=== PATIENT | female | born 1990 | race American Indian/Alaskan Native ===

== ENCOUNTER 2017-10-02 15:25 | Observation (INO) | payer OTHER ==
[2017-10-02 15:28] VITALS: BMI 23.8
--- NOTE | 2017-10-02 15:32 | ED PDOC ---
Arrival/HPI <Duran Guzman - Last Filed: 10/02/17 20:39> - General Historian: Patient <Siomn Stevenson - Last Filed: 10/04/17 21:48> - General Time Seen by Provider: 10/02/17 15:31 - History of Present Illness Narrative History of Present Illness (Text): 10/02/17 15:32 27 y/o female, pmh including htn/gerd/dm/gastroparasis, nkda, c/o abdominal pain with nausea and vomiting x 1 day. Pt. stated that she has generalized upper abdominal pain, associated with nausea and vomiting, no fever or chills, stated that she feels fatigue, no night sweat, no dizziness, no rash, no night sweat, no palpitation, no numbness or tingling, no other medical or psychological complaints. (Simon Stevenson) Past Medical History - Provider Review Nursing Documentation Reviewed: Yes - Infectious Disease Hx of Infectious Diseases: None - Tetanus Immunization Tetanus Immunization: Unknown - Cardiac Hx Hypertension: Yes - Pulmonary Hx Respiratory Disorders: No - Neurological Hx Neurological Disorder: No - HEENT Hx HEENT Disorder: No - Renal Hx Renal Disorder: No - Endocrine/Metabolic Hx Diabetes Mellitus Type 1: Yes (dx 9 yrs old) - Hematological/Oncological Hx Sickle Cell Disease: Yes ("JUST FOUND OUT A MONTH AGO") - Integumentary Hx Dermatological Disorder: No - Musculoskeletal/Rheumatological Hx Osteoporosis: Yes (pt unsure of this hx) - Gastrointestinal Hx Gastritis: Yes - Genitourinary/Gynecological Hx Genitourinary Disorders: No - Psychiatric Hx Anxiety: Yes Hx Depression: Yes Hx Substance Use: No - Past Surgical History Past Surgical History: Non-Contributing - Anesthesia Hx Anesthesia: Yes Hx Anesthesia Reactions: No Hx Malignant Hyperthermia: No - Suicidal Assessment Feels Threatened In Home Enviroment: No <Simon Stevenson - Last Filed: 10/04/17 21:48> Family/Social History - Physician Review Nursing Documentation Reviewed: Yes Family/Social History: Unknown Family HX Smoking Status: Light Smoker < 10 Cigarettes Daily Hx Alcohol Use: No Hx Substance Use: No Substance used: weed Hx Substance Use Treatment: No <Simon Stevenson - Last Filed: 10/04/17 21:48> Allergies/Home Meds <Duran Guzman - Last Filed: 10/02/17 20:39> <Simon Stevenson Q - Last Filed: 10/04/17 21:48> Allergies/Adverse Reactions: Allergies No Known Allergies Allergy (Verified 10/02/17 16:20) Home Medications: Home Meds Medication Instructions Recorded Confirmed metFORMIN [glucOPHAGE] 500 mg PO BID 07/26/17 10/02/17 Lisinopril 1 tab PO DAILY 09/08/17 10/02/17 Protonix 40 mg PO DAILY 09/08/17 10/02/17 Ondansetron ODT [Zofran ODT] 4 mg PO PRN PRN 10/02/17 10/02/17 Review of Systems - Review of Systems Constitutional: Fatigue. absent: Fevers Eyes: absent: Vision Changes ENT: absent: Hearing Changes Respiratory: Cough. absent: SOB Cardiovascular: absent: Chest Pain Gastrointestinal: Nausea. absent: Diarrhea Musculoskeletal: Myalgias. absent: Arthralgias, Back Pain, Neck Pain Skin: absent: Rash, Pruritis Neurological: absent: Headache, Dizziness Psychiatric: absent: Anxiety, Depression <Simon Stevenson Q - Last Filed: 10/04/17 21:48> Physical Exam Temperature: Afebrile Blood Pressure: Normal Pulse: Regular Respiratory Rate: Normal Appearance: Positive for: Well-Appearing, Non-Toxic, Comfortable Pain Distress: None Mental Status: Positive for: Alert and Oriented X 3 - Systems Exam Head: Present: Atraumatic, Normocephalic Pupils: Present: PERRL Extroacular Muscles: Present: EOMI, Gaze Palsy, Entrapment, Other Conjunctiva: Present: Normal Mouth: Present: Moist Mucous Membranes Neck: Present: Normal Range of Motion Respiratory/Chest: Present: Clear to Auscultation, Good Air Exchange. No: Respiratory Distress, Accessory Muscle Use Cardiovascular: Present: Regular Rate and Rhythm, Normal S1, S2. No: Murmurs Abdomen: Present: Tenderness (+epigastric and upper abdominal tenderness), Normal Bowel Sounds. No: Distention, Peritoneal Signs, Rebound, Guarding Back: Present: Normal Inspection. No: CVA Tenderness, Midline Tenderness Upper Extremity: Present: Normal Inspection. No: Cyanosis, Edema Lower Extremity: Present: Normal Inspection, Normal ROM, Neurovascularly Intact , Capillary Refill < 2 s. No: Edema, Deformity Neurological: Present: GCS=15, Speech Normal, Motor Func Grossly Intact, Memory Normal Skin: Present: Warm, Dry, Normal Color. No: Rashes Psychiatric: Present: Alert, Oriented x 3, Normal Insight, Normal Concentration <Simon Stevenson - Last Filed: 10/04/17 21:48> Vital Signs Temp Pulse Resp BP Pulse Ox 10/02/17 21:47 72 18 123/80 98 10/02/17 17:57 63 18 121/72 100 10/02/17 16:08 98.3 F 72 16 153/99 H 100 Medical Decision Making <Duran Guzman - Last Filed: 10/02/17 20:39> - Lab Interpretations I have reviewed the lab results: Yes - RAD Interpretation Food Products Tester: Radiologist <Simon Stevenson - Last Filed: 10/04/17 21:48> ED Course and Treatment: 10/02/17 15:59 -labs/ua -sonogram -CT abdomen and pelvis -IVF/pepcid/reglan/morphine 4mg -Observe and reassess 10/02/17 16:28 -Urine hcg negative. -Pt. still vomiting, benadryl 50mg IV ordered. 10/02/17 16:31 -Pt. is asking for more pain med, morphine 2mg IV ordered. 10/02/17 19:28 -Pt. still in pain and wants more meds and antiemetic medications, zofran and toradol ordered. 10/02/17 20:04 -Labs are non-significant except wbc 12.0 (afebrile, likely pain and stress induced), Mg 1.4 (mg IV ordered), Lipase is negative -UA show no UTI -Sonogram show no significant or acute findings to account for/ related to the clinical presentation. -CT abdomen and pelvis show probable atelectasis versus a very small infiltrate in the right lung base. Otherwise, no evidence of significant acute process. no evidence of acute intraabdominal process. -Pt. stated that she is coughing lately, will give antibiotic. -I re-evaluated after multiple rounds of anti-emetics/nsaid/morphine/pepcid, no relief, still in pain and vomiting, stated that she is not conformatable to go home, will admit for observation. 10/02/17 20:07 -Chest xray ordered. -I spoke to DR. Mar and the medical device sales, discussed about the case and discussed my concerning about the patient's condition and fail outpatient treatment, will need observation for over night, agreed to start rocephine and azithromycin. -I discussed with Dr. Guzman and he agreed on the observation plan, request me to put in admission order. (Simon Stevenson) - Lab Interpretations Lab Results: 10/02/17 16:35 10/02/17 16:35 Lab Results 10/02/17 16:35: WBC 12.0 H D, RBC 4.53, Hgb 12.4, Hct 35.9 L, MCV 79.2 L, MCH 27.4, MCHC 34.5, RDW 13.6, Plt Count 278, MPV 9.2, Gran % 82.8 H, Lymph % (Auto ) 11.7 L, Stanton % (Auto) 5.1, Eos % (Auto) 0.2 L, Baso % (Auto) 0.2, Gran # 9.97 H, Lymph # 1.4, Stanton # 0.6, Eos # 0.0, Baso # 0.03 10/02/17 16:35: Sodium 145, Potassium 3.7, Chloride 107, Carbon Dioxide 26, Anion Gap 16, BUN 10, Creatinine 0.7, Est GFR ( Amer) > 60, Est GFR (Non- Af Amer) > 60, Random Glucose 157 H, Calcium 9.8, Magnesium 1.4 L, Total Bilirubin 0.5, AST 33, ALT 55, Alkaline Phosphatase 50, Total Protein 8.3, Albumin 4.8, Globulin 3.5, Albumin/Globulin Ratio 1.4, Lipase 123 10/02/17 16:11: Urine Color Light yellow, Urine Appearance Clear, Urine pH 6.0, Ur Specific Roslyn 1.020, Urine Protein 30 H, Urine Glucose (UA) Negative, Urine Ketones Negative, Urine Blood Small H, Urine Nitrate Negative, Urine Bilirubin Negative, Urine Urobilinogen 0.2, Ur Leukocyte Esterase Negative, Urine RBC 1 - 3, Urine WBC 0 - 2, Ur Epithelial Cells 0 - 2, Urine Bacteria Small - RAD Interpretation Radiology Orders: 10/02/17 15:52 ABD & PELVIS IV CONTRAST ONLY [CT] Stat GALLBLADDER & COMMON DUCT [US] Stat 10/02/17 19:54 CHEST PORTABLE [RAD] Stat Gallbladder sonogram: HISTORY: nausea/vomiting/epigastric pain COMPARISON: None. TECHNIQUE: Sonographic evaluation of the right upper quadrant of the abdomen. FINDINGS: LIVER: Measures 16.5 cm in length. Normal echogenicity of the liver parenchyma. No mass. No intrahepatic bile duct dilatation. GALLBLADDER: Unremarkable. No gallstones. COMMON BILE DUCT: Measures 2.6 mm. No stones. No dilatation. PANCREAS: Unremarkable as visualized. No mass. No ductal dilatation. RIGHT KIDNEY: Measures 4.9 x 10.8 cm in length. Normal echogenicity. No calculus, mass, or hydronephrosis. AORTA: No aneurysmal dilatation. IVC: Unremarkable. OTHER FINDINGS: None . IMPRESSION: No significant or acute findings to account for/ related to the clinical presentation. CT Abdomen and Pelvis: LOWER THORAX: Small areas of groundglass density in the right lung base, most likely representing dependent atelectasis versus a minimal infiltrate. ABDOMEN: LIVER: Area of low density in the liver, abutting the falciform ligament, most compatible with focal fatty infiltration. Hepatomegaly, with the liver measuring 20 cm in length on the coronal images. GALLBLADDER AND BILE DUCTS: No CT evidence of acute cholecystitis. No evidence of significant biliary ductal dilatation. PANCREAS: No CT evidence of acute pancreatitis. SPLEEN: No acute abnormality of the spleen identified. ADRENALS: No acute abnormality of the adrenal glands identified. DULCE SHER | Final Radiology Report CONFIDENTIALITY STATEMENT This report is intended only for use by the referring physician, and only in accordance with law. If you received this in error, call [phone]. Page 2 of 2 KIDNEYS AND URETERS: No acute abnormality of the kidneys identified. No evidence of significant hydrouereteronephrosis. STOMACH AND BOWEL: No acute abnormality of the stomach, small bowel or colon identified. No evidence of bowel obstruction. APPENDIX: Appendix is seen, and is within normal limits in appearance. PELVIS: BLADDER: No acute abnormality of the bladder identified. REPRODUCTIVE:No acute abnormality of the reproductive organs is seen. No acute abnormality of the uterus identified. No evidence of large adnexal masses. ABDOMEN and PELVIS: INTRAPERITONEAL SPACE: Stable appearance of small, linear calcifications in the posterior pelvis, which may be peritoneal in location. This finding is of uncertain etiology, however, is compatible with a nonacute the finding. No evidence of free air or free fluid. BONES/JOINTS: No acute fractures or other acute bony abnormality noted. SOFT TISSUES: Postoperative scarring involving the anterior pelvic wall VASCULATURE: No evidence of abdominal aortic aneurysm. No evidence of periaortic hemorrhage. LYMPH NODES: No evidence of diffuse lymphadenopathy. IMPRESSION: - Probable atelectasis versus a very small infiltrate in the right lung base. - Otherwise, no evidence of significant acute process. No evidence of acute intraabdominal process. - See above for remaining findings. Thank you for allowing us to participate in the care of your patient. Dictated and Authenticated by: Elizabeth Jerry MD 10/02/2017 7:43 PM Eastern Time ([place] & [place]) CHest xray: no active disease (Simon Stevenson) - Medication Orders Current Medication Orders: Discontinued Medications Acetaminophen (Tylenol 325mg Tab) 650 mg PO Q6H PRN PRN Reason: Fever >100.4 F Acetaminophen (Tylenol 325mg Tab) 650 mg PO Q6H PRN PRN Reason: Pain, Mild (1-3) Last Admin: 10/03/17 18:26 Dose: 650 mg MAR Pain/Vitals Document 10/03/17 18:26 VERNA (Rec: 10/03/17 18:27 JA [id number]) Pain Reassessment Is This A Pain ReAssessment? No Sleep Is patient sleeping during reassessment? No Presence of Pain Presence of Pain Yes Pain Scale Used Pain Scale Used Numeric Location Intensity 8 Scale Used Numeric Amitriptyline HCl (Elavil) 10 mg PO ONCE ONE Stop: 10/04/17 12:46 Last Admin: 10/04/17 13:18 Dose: 10 mg Bisacodyl (Dulcolax) 10 mg RC Q24H PRN PRN Reason: constipation Diphenhydramine HCl (Benadryl) 50 mg IVP STAT STA Stop: 10/02/17 16:28 Last Admin: 10/02/17 16:43 Dose: 50 mg IVP Administration Document 10/02/17 16:43 EQ (Rec: 10/02/17 16:43 EQ [id number]) Charges for Administration # of IVP Administrations 1 Famotidine (Pepcid) 20 mg IVP DAILY [facility] Last Admin: 10/02/17 16:43 Dose: 20 mg IVP Administration Document 10/02/17 16:43 EQ (Rec: 10/02/17 16:43 EQ [id number]) Charges for Administration # of IVP Administrations 1 Heparin Sodium (Porcine) (Heparin) 5,000 units SC Q8 ALIYA PRN Reason: Protocol Last Admin: 10/04/17 06:41 Dose: 5,000 units Subcutaneous Administrations Document 10/04/17 06:41 BR (Rec: 10/04/17 06:41 [id number][facility] Charges for Administration # of Subcutaneous Administrations 1 Hydromorphone HCl (Dilaudid) 0.5 mg IVP STAT STA Stop: 10/04/17 06:28 Last Admin: 10/04/17 06:41 Dose: 0.5 mg MAR Pain Assessment Document 10/04/17 06:41 BR (Rec: 10/04/17 06:42 [id number][facility] Pain Reassessment Is this a pain reassessment? No Sleep Is patient sleeping during reassessment? No Presence of Pain Presence of Pain Yes IVP Administration Document 10/04/17 06:41 BR (Rec: 10/04/17 06:42 [id number]) Charges for Administration # of IVP Administrations 1 Sodium Chloride (Sodium Chloride 0.9%) 1,000 mls @ 999 mls/hr IV .Q1H1M STA Stop: 10/02/17 16:54 Last Admin: 10/02/17 16:43 Dose: 999 mls/hr eMAR Start Stop Document 10/02/17 16:43 EQ (Rec: 10/02/17 16:43 EQ [id number]) Intravenous Solution Start Date 10/02/17 Start Time 16:43 Magnesium Sulfate/Dextrose (Magnesium Sulfate 1 Gm/100 Ml D5w) 1 gm in 100 mls @ 100 mls/hr IVPB ONCE ONE Stop: 10/02/17 18:14 Last Admin: 10/02/17 18:00 Dose: 100 mls/hr eMAR Start Stop Document 10/02/17 18:00 EQ (Rec: 10/02/17 18:29 EQ [id number]) Intravenous Solution Start Date 10/02/17 Start Time 18:00 Ceftriaxone Sodium (Rocephin 1 Gram Ivpb) 1 gm in 100 mls @ 200 mls/hr IVPB STAT STA PRN Reason: Protocol Stop: 10/02/17 20:28 Last Admin: 10/02/17 20:50 Dose: 200 mls/hr eMAR Start Stop Document 10/02/17 20:50 EQ (Rec: 10/02/17 20:50 EQ [id number]) Intravenous Solution Start Date 10/02/17 Start Time 20:50 Azithromycin (Zithromax 500mg In Ns) 500 mg in 250 mls @ 167 mls/hr IVPB STAT STA PRN Reason: Protocol Stop: 10/02/17 21:28 Last Admin: 10/02/17 21:14 Dose: 167 mls/hr eMAR Start Stop Document 10/02/17 21:14 EQ (Rec: 10/02/17 21:14 EQ [id number]) Intravenous Solution Start Date 10/02/17 Start Time 21:14 Sodium Chloride (Sodium Chloride 0.9%) 1,000 mls @ 100 mls/hr IV .Q10H [facility] Last Admin: 10/04/17 06:40 Dose: 100 mls/hr eMAR Start Stop Document 10/04/17 06:40 BR (Rec: 10/04/17 06:40 BR [id number]) Intravenous Solution Start Date 10/04/17 Start Time 06:40 Ceftriaxone Sodium 1,000 mg/ (Sodium Chloride) 100 mls @ 100 mls/hr IVPB Q24H ALIYA PRN Reason: Protocol Stop: 10/08/17 10:01 Last Admin: 10/04/17 09:32 Dose: 100 mls/hr eMAR Start Stop Document 10/04/17 09:32 YJ (Rec: 10/04/17 09:32 [id number]) Intravenous Solution Start Date 10/04/17 Start Time 09:32 End Date 10/04/17 End time 10:32 Total Infusion Time 60 Azithromycin (Zithromax 500mg In Ns) 500 mg in 250 mls @ 167 mls/hr IVPB DAILY ALIYA PRN Reason: Protocol Stop: 10/08/17 10:01 Last Admin: 10/04/17 09:32 Dose: 167 mls/hr eMAR Start Stop Document 10/04/17 09:32 Y (Rec: 10/04/17 09:32 [id number]) Intravenous Solution Start Date 10/04/17 Start Time 10:32 End Date 10/04/17 End time 12:02 Total Infusion Time 90 Insulin Human Regular (Humulin R Low) 0 units SC ACHS ALIYA PRN Reason: Protocol Last Admin: 10/04/17 12:03 Dose: Not Given Non-Admin Reason: Blood Sugar Parameter MAR Blood Glucose Document 10/04/17 12:03 Y (Rec: 10/04/17 12:03 [id number] Blood Glucose Finger Stick Blood Glucose (70-120) 133 Ketorolac Tromethamine (Toradol) 30 mg IVP STAT STA Stop: 10/02/17 19:29 Last Admin: 10/02/17 19:44 Dose: 30 mg MAR Pain Assessment Document 10/02/17 19:44 EQ (Rec: 10/02/17 19:44 EQ [id number]) Pain Reassessment Is this a pain reassessment? No Sleep Is patient sleeping during reassessment? No Presence of Pain Presence of Pain Yes Pain Scale Used Pain Scale Used Numeric IVP Administration Document 10/02/17 19:44 EQ (Rec: 10/02/17 19:44 EQ [id number]) Charges for Administration # of IVP Administrations 1 Lisinopril (Zestril) 10 mg PO DAILY ALIYA Last Admin: 10/04/17 09:32 Dose: 10 mg MAR Pulse and Blood Pressure Document 10/04/17 09:32 YJ (Rec: 10/04/17 09:33 YJ [id number]) Pulse Pulse Rate (60-90) 75 Blood Pressure Blood Pressure (100/60-150/90) 132/86 Metoclopramide HCl (Reglan) 10 mg IVP STAT STA Stop: 10/02/17 15:53 Last Admin: 10/02/17 16:42 Dose: 10 mg IVP Administration Document 10/02/17 16:42 EQ (Rec: 10/02/17 16:43 EQ [id number]) Charges for Administration # of IVP Administrations 1 Metoclopramide HCl (Reglan) 5 mg IVP Q6H PRN PRN Reason: Nausea Last Admin: 10/03/17 04:13 Dose: 5 mg IVP Administration Document 10/03/17 04:13 MAD (Rec: 10/03/17 04:12 MAD [id number]) Charges for Administration # of IVP Administrations 1 Metoclopramide HCl (Reglan) 5 mg IVP ONCE STA Stop: 10/03/17 07:58 Last Admin: 10/03/17 08:27 Dose: 5 mg IVP Administration Document 10/03/17 08:27 JA (Rec: 10/03/17 08:27 JA [id number]) Charges for Administration # of IVP Administrations 1 Mineral Oil (Fleet Mineral Oil Enema) 135 ml RC ONCE ONE Stop: 10/04/17 10:29 Last Admin: 10/04/17 11:52 Dose: 135 ml Morphine Sulfate (Morphine) 4 mg IVP STAT STA Stop: 10/02/17 15:58 Last Admin: 10/02/17 16:43 Dose: 4 mg MAR Pain Assessment Document 10/02/17 16:43 EQ (Rec: 10/02/17 16:43 EQ [id number]) Pain Reassessment Is this a pain reassessment? No Sleep Is patient sleeping during reassessment? No Presence of Pain Presence of Pain Yes Pain Scale Used Pain Scale Used Numeric IVP Administration Document 10/02/17 16:43 EQ (Rec: 10/02/17 16:43 EQ [id number]) Charges for Administration # of IVP Administrations 1 Morphine Sulfate (Morphine) 2 mg IVP STAT STA Stop: 10/02/17 16:31 Last Admin: 10/02/17 17:09 Dose: 2 mg [facility] Pain Assessment Document 10/02/17 17:09 EQ (Rec: 10/02/17 17:09 EQ [id number]) Pain Reassessment Is this a pain reassessment? No Sleep Is patient sleeping during reassessment? No Presence of Pain Presence of Pain Yes IVP Administration Document 10/02/17 17:09 EQ (Rec: 10/02/17 17:09 EQ [id number]) Charges for Administration # of IVP Administrations 1 Morphine Sulfate (Morphine) 2 mg IVP Q6H PRN PRN Reason: Pain, moderate (4-7) Last Admin: 10/03/17 12:30 Dose: 2 mg [facility] Pain Assessment Document 10/03/17 12:30 JA (Rec: 10/03/17 12:31 [id number]) Pain Reassessment Is this a pain reassessment? No Presence of Pain Presence of Pain No Pain Scale Used Pain Scale Used Numeric Location Pain Location Body Site Abdomen Hand Leg Description Description Constant Intensity of Pain at present 10 Pain Behavior Moaning Crying Restlessness Facial Grimacing Aggravating Factors ADL's Changing Position Alleviating Factors/Management Medication Techniques Alleviating Factors Medication IVP Administration Document 10/03/17 12:30 JA (Rec: 10/03/17 12:31 [id number]) Charges for Administration # of IVP Administrations 1 Re-Assess: MAR Pain Assessment Document 10/03/17 13:30 JA (Rec: 10/03/17 14:24 [id number]) Pain Reassessment Is this a pain reassessment? Yes Sleep Is patient sleeping during reassessment? No Presence of Pain Presence of Pain No Pain Scale Used Pain Scale Used Numeric Description Intensity of Pain at present 0 Acceptable Level of Pain 0-2 Alleviating Factors/Management Medication Techniques Ondansetron HCl (Zofran Inj) 4 mg IVP STAT STA Stop: 10/02/17 19:29 Last Admin: 10/02/17 19:44 Dose: 4 mg IVP Administration Document 10/02/17 19:44 EQ (Rec: 10/02/17 19:44 EQ [id number]) Charges for Administration # of IVP Administrations 1 Ondansetron HCl (Zofran Inj) 4 mg IVP Q4H PRN PRN Reason: Nausea/Vomiting Last Admin: 10/04/17 04:29 Dose: 4 mg IVP Administration Document 10/04/17 04:29 BR (Rec: 10/04/17 04:29 BR [id number]) Charges for Administration # of IVP Administrations 1 Pantoprazole Sodium (Protonix Inj) 40 mg IVP DAILY [facility] Last Admin: 10/04/17 09:32 Dose: 40 mg IVP Administration Document 10/04/17 09:32 YJ (Rec: 10/04/17 09:32 YJ [id number]) Charges for Administration # of IVP Administrations 1 Polyethylene Glycol (Miralax) 17 gm PO STAT STA Stop: 10/02/17 21:20 Last Admin: 10/03/17 01:51 Dose: 17 gm Polyethylene Glycol (Miralax) 17 gm PO BID [facility] Last Admin: 10/04/17 11:52 Dose: 17 gm Promethazine HCl (Phenergan Inj) 50 mg IM ONCE ONE Stop: 10/03/17 10:45 Last Admin: 10/03/17 11:17 Dose: 50 mg IM Administration Charges Document 10/03/17 11:17 JA (Rec: 10/03/17 11:17 JA [id number]) Injection Site MAR Injection Site Left Deltoid Charges for Administration # of IM Administrations 1 Promethazine HCl (Phenergan Inj) 25 mg IM Q6 [facility] Last Admin: 10/04/17 11:52 Dose: 25 mg IM Administration Charges Document 10/04/17 11:52 YJ (Rec: 10/04/17 11:53 YJ [id number]) Injection Site MAR Injection Site Right Deltoid Charges for Administration # of IM Administrations 1 - PA / OBSTETRICS/GYNECOLOGY NURSE / Resident Statement DIANE has reviewed & agrees with the documentation as recorded. DIANE has examined the patient and agrees with the treatment plan. <Duran Guzman - Last Filed: 10/02/17 20:39> - PA / OBSTETRICS/GYNECOLOGY NURSE / Resident Statement MD/DO has reviewed & agrees with the documentation as recorded. <Simon Stevenson - Last Filed: 10/04/17 21:48> Disposition/Present on Arrival <Duran Guzman - Last Filed: 10/02/17 20:39> - Present on Arrival Any Indicators Present on Arrival: Yes History of DVT/PE: No History of Uncontrolled Diabetes: Yes Urinary Catheter: No History Surgical Site Infection Following: None - Disposition Have Diagnosis and Disposition been Completed?: Yes Disposition Time: 20:09 Patient Plan: Observation <Simon Stevenson - Last Filed: 10/04/17 21:48> - Disposition Diagnosis: Persistent vomiting, Intractable abdominal pain, Pneumonia Disposition: HOSPITALIZED Condition: STABLE
[2017-10-02] MEDS ORDERED: Sodium Chloride 0.9% 1,000 ML IV STA (15:54)
[2017-10-02] MEDS ORDERED: Morphine 4 mg/ml ISec IVP STA (15:57)
[2017-10-02] MEDS ORDERED: DiphenhydrAMINE 50 mg/ml Inj IVP STA (16:27)
[2017-10-02] MEDS ORDERED: Morphine 2 mg/ml ISec IVP STA (16:30)
[2017-10-02 16:40] LABS: URINE BILIRUBIN NEGATIVE (NEGATIVE); URINE BLOOD SMALL (NEGATIVE); URINE GLUCOSE (UA) NEGATIVE (NEGATIVE); URINE LEUKOCYTE ESTERASE NEGATIVE Leu/uL (NEGATIVE); URINE NITRATE NEGATIVE (NEGATIVE); URINE PROTEIN 30 mg/dL (<30 mg/dL); URINE UROBILINOGEN 0.2 E.U./dL (<1 E.U./dL)
[2017-10-02 16:50] LABS: BASO # 0.03 K/mm3 (0.0-2.0); BASO % 0.2 % (0.0-3.0); EOS % 0.2 % (1.5-5.0); GRAN # 9.97 (1.4-6.5); GRAN % 82.8 % (50.0-68.0); HEMOGLOBIN 12.4 g/dL (12.0-16.0); LYMPH # 1.4 (1.2-3.4); LYMPH % 11.7 % (22.0-35.0); MEAN CELL VOLUME 79.2 fl (80.0-105.0); MEAN CORPUSCULAR HEMOGLOBIN 27.4 pg (25.0-35.0); MEAN CORPUSCULAR HGB CONC 34.5 g/dl (31.0-37.0); MEAN PLATELET VOLUME 9.2 fl (7.0-11.0); MONO # 0.6 (0.1-0.6); MONO % 5.1 % (1.0-6.0); RBC 4.53 10^6/uL (3.5-6.1); RED CELL DISTRIBUTION WIDTH 13.6 % (11.5-14.5)
[2017-10-02 17:03] LABS: ALB/GLOB RATIO 1.4 (1.1-1.8); ALBUMIN 4.8 g/dL (3.0-4.8); ALT/SGPT 55 U/L (7-56); AST/SGOT 33 U/L (14-36); BLOOD UREA NITROGEN 10 mg/dL (7-21); CALCIUM 9.8 mg/dL (8.4-10.5); GFR AFRICAN-AMERICAN > 60; GFR NON-AFRICAN AMERICAN > 60; LIPASE 123 U/L (23-300); MAGNESIUM 1.4 mg/dL (1.7-2.2)
[2017-10-02] MEDS ORDERED: Iohexol 350 MG/100 ML VIAL ONE (17:03)
[2017-10-02] MEDS ORDERED: Magnesium Sulfate 1 gm in D5W 1 GM/100 ML BAG IVPB ONE (17:15)
[2017-10-02 17:21] LABS: URINE APPEARANCE CLEAR (CLEAR); URINE COLOR LIGHT YELLOW (YELLOW)
[2017-10-02 17:29] LABS: URINE BACTERIA SMALL (NEG); URINE EPITHELIAL CELLS 0 - 2 /hpf (0-5); URINE WBC 0 - 2 /hpf (0-6)
--- NOTE | 2017-10-02 17:32 | US ---
HISTORY: nausea/vomiting/epigastric pain COMPARISON: None. TECHNIQUE: Sonographic evaluation of the right upper quadrant of the abdomen. FINDINGS: LIVER: Measures 16.5 cm in length. Normal echogenicity of the liver parenchyma. No mass. No intrahepatic bile duct dilatation. GALLBLADDER: Unremarkable. No gallstones. COMMON BILE DUCT: Measures 2.6 mm. No stones. No dilatation. PANCREAS: Unremarkable as visualized. No mass. No ductal dilatation. RIGHT KIDNEY: Measures 4.9 x 10.8 cm in length. Normal echogenicity. No calculus, mass, or hydronephrosis. AORTA: No aneurysmal dilatation. IVC: Unremarkable. OTHER FINDINGS: None . IMPRESSION: No significant or acute findings to account for/ related to the clinical presentation.
--- NOTE | 2017-10-02 19:43 | CT ---
EXAM: CT Abdomen and Pelvis With Intravenous Contrast EXAM DATE/TIME: 10/02/2017 3:52 PM CLINICAL HISTORY: 27 years old, female; Pain; Abdominal pain; Acute; Additional info: Nausea/vomiting/abdominal pain, h/o gastroparaesis TECHNIQUE: Axial computed tomography images of the abdomen and pelvis with intravenous contrast. All CT scans at this facility use one or more dose reduction techniques, viz.: automated exposure control; ma/kV adjustment per patient size (including targeted exams where dose is matched to indication; i.e. head); or iterative reconstruction technique. Coronal and sagittal reformatted images were created and reviewed. CONTRAST: 100 mL of omni 350 administered intravenously. COMPARISON: Prior CT abdomen and pelvis of 01/20/2016. FINDINGS: LOWER THORAX: Small areas of groundglass density in the right lung base, most likely representing dependent atelectasis versus a minimal infiltrate. ABDOMEN: LIVER: Area of low density in the liver, abutting the falciform ligament, most compatible with focal fatty infiltration. Hepatomegaly, with the liver measuring 20 cm in length on the coronal images. GALLBLADDER AND BILE DUCTS: No CT evidence of acute cholecystitis. No evidence of significant biliary ductal dilatation. PANCREAS: No CT evidence of acute pancreatitis. SPLEEN: No acute abnormality of the spleen identified. ADRENALS: No acute abnormality of the adrenal glands identified. KIDNEYS AND URETERS: No acute abnormality of the kidneys identified. No evidence of significant hydrouereteronephrosis. STOMACH AND BOWEL: No acute abnormality of the stomach, small bowel or colon identified. No evidence of bowel obstruction. APPENDIX: Appendix is seen, and is within normal limits in appearance. PELVIS: BLADDER: No acute abnormality of the bladder identified. REPRODUCTIVE:No acute abnormality of the reproductive organs is seen. No acute abnormality of the uterus identified. No evidence of large adnexal masses. ABDOMEN and PELVIS: INTRAPERITONEAL SPACE: Stable appearance of small, linear calcifications in the posterior pelvis, which may be peritoneal in location. This finding is of uncertain etiology, however, is compatible with a nonacute the finding. No evidence of free air or free fluid. BONES/JOINTS: No acute fractures or other acute bony abnormality noted. SOFT TISSUES: Postoperative scarring involving the anterior pelvic wall VASCULATURE: No evidence of abdominal aortic aneurysm. No evidence of periaortic hemorrhage. LYMPH NODES: No evidence of diffuse lymphadenopathy. IMPRESSION: - Probable atelectasis versus a very small infiltrate in the right lung base. - Otherwise, no evidence of significant acute process. No evidence of acute intraabdominal process. - See above for remaining findings.
[2017-10-02] MEDS ORDERED: Azithromycin 500MG/NS 250ml 500 MG/250 ML BAG IVPB STA (19:59)
[2017-10-02] MEDS ORDERED: cefTRIAXone 1 gm 1 GM/100 ML BAG IVPB STA (19:59)
[2017-10-02] MEDS ORDERED: POLYETHYLENE GLYCOL 3350 17 GM/Dose PACKET PO STA (21:19)
--- NOTE | 2017-10-02 21:56 | CP.PCM.HP ---
<Jennifer Nieves - Last Filed: 10/02/17 22:34> History of Present Illness - History of Present Illness History of Present Illness: Jennifer Nieves DO PGY1 - Internal Medicine H&P CC: Abdominal pain, nausea, vomiting x3 days HPI: 27 yo F with PMH of DM type I, GERD, gastroparesis, HTN, and sickle cell trait presents to ER complaining of unrelenting abdominal pain, nausea, and vomiting with inability to tolerate PO for the past three days. She has had similar symptoms, on and off, for about 4 years, which she associates with increased stress. She typically gets these symptoms around the time of her period. Abdominal pain is burning in nature, occasionally radiates to mid-low chest, worsened with meals and lying flat. She reports constant nausea, worse with meals/liquids, though she is occasionally able to tolerate some liquids, including soup she ate earlier today. She reports vomiting, nonbloody, nonbilious. She reports that she last had these symptoms flare up around the time of her last period, which was 09/09/17, after which she received at [facility]- Provera injection for hormonal contraception on 09/11/17; her symptoms and her period ended 1-2 days later, but then her symptoms again returned 2-3 days later. She denies fever or chills, diarrhea, chest pain, shortness of breath, dysuria, hematuria, hemoptysis, hematemesis, hematochezia, melena. She admits to cough, which she has "all the time" productive of white/clear sputum. She also admits to constipation, requiring self manual disimpaction twice daily. Remainder of 12 point was obtained as was negative. PMH: DM type I (diagnosed age 9), GERD, gastroparesis, HTN, and sickle cell trait PSH: Denies Soc: Smokes 3 cigarettes daily x17 years; denies alcohol or illicits. Currently sexually active with one male partner, uses protection regularly, and receives Depo-Medrol injection for hormonal contraception. LMP 09/09/2017. Last received depo shot 09/11/2017. FHx: DM in multiple family members. Breast CA in multiple family members. Sickle cell disease and trait in multiple family members. All: NKDA Present on Admission - Present on Admission Any Indicators Present on Admission: No Past Patient History - Infectious Disease Hx of Infectious Diseases: None - Tetanus Immunizations Tetanus Immunization: Unknown - Past Medical History & Family History Past Medical History?: Yes - Past Social History Smoking Status: Light Smoker < 10 Cigarettes Daily - CARDIAC Hx Hypertension: Yes - PULMONARY Hx Respiratory Disorders: No - NEUROLOGICAL Hx Neurological Disorder: No - HEENT Hx HEENT Problems: No - RENAL Hx Chronic Kidney Disease: No - ENDOCRINE/METABOLIC Hx Diabetes Mellitus Type 1: Yes (dx 9 yrs old) - HEMATOLOGICAL/ONCOLOGICAL Hx Sickle Cell Disease: Yes ("JUST FOUND OUT A MONTH AGO") - INTEGUMENTARY Hx Dermatological Problems: No - MUSCULOSKELETAL/RHEUMATOLOGICAL Hx Osteoporosis: Yes (pt unsure of this hx) - GASTROINTESTINAL Hx Gastritis: Yes - GENITOURINARY/GYNECOLOGICAL Hx Genitourinary Disorders: No - PSYCHIATRIC Hx Anxiety: Yes Hx Depression: Yes Hx Substance Use: No - SURGICAL HISTORY Hx Surgeries: No - ANESTHESIA Hx Anesthesia: Yes Hx Anesthesia Reactions: No Hx Malignant Hyperthermia: No Meds Allergies/Adverse Reactions: Allergies Allergy/AdvReac Type Severity Reaction Status Date / Time No Known Allergies Allergy Verified 10/02/17 16:20 Physical Exam - Constitutional Appears: Non-toxic, In Acute Distress (mild) - Head Exam Head Exam: ATRAUMATIC, NORMOCEPHALIC - Eye Exam Eye Exam: EOMI, Normal appearance, PERRL - ENT Exam ENT Exam: Mucous Membranes Moist - Neck Exam Neck exam: Positive for: Normal Inspection - Respiratory Exam Respiratory Exam: Clear to Auscultation Bilateral, NORMAL BREATHING PATTERN - Cardiovascular Exam Cardiovascular Exam: REGULAR RHYTHM, +S1, +S2. absent: Bradycardia, Tachycardia - GI/Abdominal Exam GI & Abdominal Exam: Normal Bowel Sounds, Soft, Tenderness (Epigastric tenderness noted when patient was distracted; diffuse tenderness when patient was prompted for response). absent: Distended, Firm, Guarding, Organomegaly, Rebound, Rigid - Extremities Exam Extremities exam: Negative for: calf tenderness, pedal edema - Neurological Exam Neurological exam: Alert, Oriented x3 - Psychiatric Exam Psychiatric exam: Anxious Additional comments: patient fidgiting constantly on the bed, at one point, started to remove her clothes because she felt warm Labile affect; patient swings from euphoric to tearful during encounter - Skin Skin Exam: Dry, Intact, Normal Color Results - Vital Signs Recent Vital Signs: Last Vital Signs Temp 98.3 F 10/02/17 16:08 Pulse 72 12/26/17 21:47 Resp 18 10/02/17 21:47 BP 123/80 10/02/17 21:47 Pulse Ox 98 10/02/17 21:47 - Labs Result Diagrams: 10/02/17 16:35 10/02/17 16:35 Labs: Laboratory Results - last 24 hr 10/02/17 21:20 POC Glucose (mg/dL) 131 H Assessment & Plan - Assessment and Plan (Free Text) Assessment: 27 yo F with PMH of DM type I, GERD, gastroparesis, HTN, and sickle cell trait presents to ER complaining of unrelenting abdominal pain, nausea, and vomiting with inability to tolerate PO for the past three days, though she did eat soup today. Has presented to the ER multiple times in the past for the same complaints. Also noted to be complaining of cough, and constipation. Plan Intractable nausea, vomiting, and abdominal pain - Likely 2/2 gastroparesis vs gastritis vs GERD vs hormonal contraceptive adverse effect - Diabetic female; may present with atypical chest pain; ordered trop and EKG to r/o ACS - Symptoms did not improve significantly with initial symptomatic treatment in the ER - CT A/P shows no evidence of acute intraabdominal findings; Abd US unremarkable - Patient reportedly previously exhibited drug seeking behavior in prior admissions; ordered UDS and Serum alcohol level to r/o substance abuse/ withdrawal - Patient reports two forms of contraception; low likelihood of ; ordered qualitative test to confirm - Moderately hyperglycemic on admission; pt reports compliance and good glycemic control at home; ordered HbA1c to r/o poor glycemic control contributing to gastroparesis - Start PRN Zofran and Reglan; EKG reviewed to assess QTc, low risk of QT prolongation - Morphine and tylenol for moderate/severe and mild pain, respectively - Maintain NPO except meds and ice chips - IVF hydration NS @100cc/hr - GI consult requested, appreciate recs Possible Pneumonia - Patient complaining of productive cough, with leukocytosis, and - Afebrile, saturating well on RA, not tachypneic - Continue rocephin and zithromax, as started in ER - Recheck CBC in AM Constipation - Patient reports chronic constipation, requiring manual disimpaction twice daily - Start Miralax daily (if patient can tolerate PO) - Start dulcolax suppository PRN for constipation - GI consult requested, as above; appreciate recs Diabetes, type I - Patient diagnosed with type I DM 18 years ago; reports compliance with home medications and good glycemic control - Ordered A1c as above; last recorded A1c Oct 2016 - Start SSI Low with accucheck q6h while NPO HTN - BP well controlled on admission - Resume home lisinopril; hold for SBP <120, DBP <80 GERD - Patient had EGD in 11/[address] Rush which showed LA grade A reflux esophagitis, gastroparesis, and gastritis. - Start protonix IV while patient is NPO; resume PO protonix when patient tolerating PO GI PPx: Protonix, as above DVT PPx: Heparin Patient seen, discussed, and reviewed with attending, Dr. Mar <Robbin Mar - Last Filed: 10/03/17 00:14> Results - Vital Signs Recent Vital Signs: Last Vital Signs Temp 98.3 F 10/02/17 16:08 Pulse 72 10/02/17 21:47 Resp 18 10/02/17 21:47 BP 123/80 10/02/17 21:47 Pulse Ox 98 10/02/17 21:47 - Labs Result Diagrams: 10/02/17 16:35 10/02/17 16:35 Labs: Laboratory Results - last 24 hr 10/02/17 10/02/17 10/02/17 21:20 21:35 22:00 POC Glucose (mg/dL) 131 H Troponin I < 0.01 Urine HCG, Qual Negative Attending/Attestation - Attestation I have personally seen and examined this patient.: Yes I have fully participated in the care of the patient.: Yes I have reviewed all pertinent clinical information: Yes Notes (Text): 10/03/17 00:13 Patient was seen when she was in bed # 19 in the ER. Agree with history ,physical examination, assessment and plan with following impressions. Intractable abdominal pain. Nausea/Vomiting. PNA. Hypomagnesemia. Gastroparesis. Gastritis. Reflux esophagitis. History of endoscopy. Leukocytosis. IDDM. HTN. Osteoporosis. Anxiety. Depresson. History of marijuana use. Sickle cell trait. Smoker. FHx breast cancer. FHx DM. FHx Sickle cell disease.
[2017-10-02] MEDS: Morphine 2 mg/ml ISec IVP PRN (23:40)
[2017-10-02] MEDS: Sodium Chloride 0.9% 1,000 ML IV SCH (23:42)
[2017-10-03] MEDS: Insulin Reg-LOW-Coverage SC SCH ×4 (01:32→16:44)
[2017-10-03 04:36] LABS: BARBITURATES, UR NEGATIVE (NEGATIVE); BENZODIAZEPINES, UR NEGATIVE (NEGATIVE); PHENCYCLIDINE, UR NEGATIVE (NEGATIVE)
[2017-10-03 04:37] LABS: OPIATES, UR POSITIVE (NEGATIVE)
[2017-10-03] MEDS: Morphine 2 mg/ml ISec IVP PRN ×2 (05:54→12:30)
[2017-10-03 07:13] LABS: BASO # 0.02 K/mm3 (0.0-2.0); BASO % 0.2 % (0.0-3.0); EOS % 0.1 % (1.5-5.0); GRAN # 8.52 (1.4-6.5); GRAN % 80.9 % (50.0-68.0); HEMOGLOBIN 11.7 g/dL (12.0-16.0); LYMPH # 1.5 (1.2-3.4); LYMPH % 14.5 % (22.0-35.0); MEAN CELL VOLUME 79.4 fl (80.0-105.0); MEAN CORPUSCULAR HEMOGLOBIN 26.8 pg (25.0-35.0); MEAN CORPUSCULAR HGB CONC 33.7 g/dl (31.0-37.0); MEAN PLATELET VOLUME 9.8 fl (7.0-11.0); MONO # 0.5 (0.1-0.6); MONO % 4.3 % (1.0-6.0); RBC 4.37 10^6/uL (3.5-6.1); RED CELL DISTRIBUTION WIDTH 13.6 % (11.5-14.5); WHITE BLOOD COUNT 10.5 10^3/ul (4.5-11.0)
[2017-10-03 07:53] LABS: ALB/GLOB RATIO 1.5 (1.1-1.8); ALBUMIN 4.5 g/dL (3.0-4.8); ALT/SGPT 46 U/L (7-56); AST/SGOT 31 U/L (14-36); BLOOD UREA NITROGEN 11 mg/dL (7-21); CALCIUM 9.3 mg/dL (8.4-10.5); GFR AFRICAN-AMERICAN > 60; GFR NON-AFRICAN AMERICAN > 60; MAGNESIUM 1.8 mg/dL (1.7-2.2)
[2017-10-03] MEDS: Sodium Chloride 0.9% 1,000 ML IV SCH ×2 (08:27→21:06)
[2017-10-03 08:34] VITALS: RESP 20
[2017-10-03] MEDS: Azithromycin 500MG/NS 250ml 500 MG/250 ML BAG IVPB SCH (11:16)
--- NOTE | 2017-10-03 11:21 | RAD ---
HISTORY: medical clearance COMPARISON: No prior. FINDINGS: LUNGS: No active pulmonary disease. PLEURA: No significant pleural effusion identified, no pneumothorax apparent. CARDIOVASCULAR: Normal. OSSEOUS STRUCTURES: No significant abnormalities. VISUALIZED UPPER ABDOMEN: Normal. OTHER FINDINGS: None. IMPRESSION: No active disease.
--- NOTE | 2017-10-03 12:10 | CP.PCM.CON ---
<Cydney Sexton - Last Filed: 10/03/17 14:44> History of Present Illness - History of Present Illness History of Present Illness: PGY4 Initial GI Consult Emerald Perez is a 25 year old female with past history of DM with known gastroparesis, sickle cell, who presents to hospital with generalized abdominal pain with nausea, vomiting for the past few days. She is seen this morning ambulating in hallway, appears comfortable. She describes a generalized 8/10 intensity abdominal pain, non-radiating along with associated nausea and non- bloody emesis. She has had a loss of appetite but denies fever/chills, diarrhea , rectal bleeding, weight loss, or change in bowel habits. She had an EGD with Dr. Rush in November 2015 which showed retained food content suggestive of gastroparesis and esophagitis (biopsies unremarkable). CT abd revealed no sig findings except stool burden. She is asking for additional pain medication. She notes having one 1 Bm every 3 days and states that she often has to manually disimpact herself. She notes generic stool softner use but does not recall its name. Denies any melena, hematemesis, or coffee-ground emesis Social history: smokes 1/2 PPD cigarettes, no ETOH use Family history: non-contributory Endo hx: EGD 11/2015: gastroparesis ROS: 12 point ROS conducted neg other than above Past Patient History - Infectious Disease Hx of Infectious Diseases: None - Tetanus Immunizations Tetanus Immunization: Unknown - Past Medical History & Family History Past Medical History?: Yes - Past Social History Smoking Status: cannabis - CARDIAC Hx Hypertension: Yes - PULMONARY Hx Respiratory Disorders: No - NEUROLOGICAL Hx Neurological Disorder: No - HEENT Hx HEENT Problems: No - RENAL Hx Chronic Kidney Disease: No - ENDOCRINE/METABOLIC Hx Diabetes Mellitus Type 1: Yes (dx 9 yrs old) - HEMATOLOGICAL/ONCOLOGICAL Hx Human Immunodeficiency Virus (HIV): No Hx Sickle Cell Disease: Yes ("JUST FOUND OUT A MONTH AGO") - INTEGUMENTARY Hx Dermatological Problems: No - MUSCULOSKELETAL/RHEUMATOLOGICAL Hx Falls: No - GASTROINTESTINAL Other/Comment: Gastritis - GENITOURINARY/GYNECOLOGICAL Hx Genitourinary Disorders: No - PSYCHIATRIC Hx Substance Use: No - SURGICAL HISTORY Hx Surgeries: No - ANESTHESIA Hx Anesthesia: Yes Hx Anesthesia Reactions: No Hx Malignant Hyperthermia: No Meds Allergies/Adverse Reactions: Allergies Allergy/AdvReac Type Severity Reaction Status Date / Time No Known Allergies Allergy Verified 10/02/17 16:20 - Medications Medications: Current Medications Acetaminophen (Tylenol 325mg Tab) 650 mg PO Q6H PRN PRN Reason: Pain, Mild (1-3) Last Admin: 10/03/17 04:14 Dose: 650 mg Bisacodyl (Dulcolax) 10 mg RC Q24H PRN PRN Reason: constipation Heparin Sodium (Porcine) (Heparin) 5,000 units SC Q8 [facility] PRN Reason: Protocol Last Admin: 10/03/17 05:59 Dose: Not Given Sodium Chloride (Sodium Chloride 0.9%) 1,000 mls @ 100 mls/hr IV .Q10H [facility] Last Admin: 10/03/17 08:27 Dose: 100 mls/hr Ceftriaxone Sodium 1,000 mg/ (Sodium Chloride) 100 mls @ 100 mls/hr IVPB Q24H [facility] PRN Reason: Protocol Stop: 10/08/17 10:01 Last Admin: 10/03/17 10:24 Dose: 100 mls/hr Azithromycin (Zithromax 500mg In Ns) 500 mg in 250 mls @ 167 mls/hr IVPB DAILY [facility] PRN Reason: Protocol Stop: 10/08/17 10:01 Last Admin: 10/03/17 11:16 Dose: 167 mls/hr Insulin Human Regular (Humulin R Low) 0 units SC ACHS [facility] PRN Reason: Protocol Last Admin: 10/03/17 08:13 Dose: Not Given Lisinopril (Zestril) 10 mg PO DAILY [facility] Last Admin: 10/03/17 10:25 Dose: 10 mg Morphine Sulfate (Morphine) 2 mg IVP Q6H PRN PRN Reason: Pain, moderate (4-7) Last Admin: 10/03/17 05:54 Dose: 2 mg Ondansetron HCl (Zofran Inj) 4 mg IVP Q4H PRN PRN Reason: Nausea/Vomiting Last Admin: 10/03/17 01:46 Dose: 4 mg Pantoprazole Sodium (Protonix Inj) 40 mg IVP DAILY [facility] Last Admin: 10/03/17 10:26 Dose: 40 mg Physical Exam - Constitutional Appears: Well, No Acute Distress - Head Exam Head Exam: ATRAUMATIC, NORMOCEPHALIC - Eye Exam Eye Exam: Normal appearance - ENT Exam ENT Exam: Mucous Membranes Moist - Respiratory Exam Respiratory Exam: Clear to Auscultation Bilateral, NORMAL BREATHING PATTERN. absent: Prolonged Expiratory Phase, Rales, Rhonchi, Wheezes, Respiratory Distress - Cardiovascular Exam Cardiovascular Exam: REGULAR RHYTHM, +S1, +S2 - GI/Abdominal Exam GI & Abdominal Exam: Normal Bowel Sounds, Soft, Tenderness (lower quad B/L). absent: Distended, Firm, Guarding - Extremities Exam Extremities exam: Negative for: joint swelling, pedal edema - Neurological Exam Neurological exam: Alert, Oriented x3 - Psychiatric Exam Psychiatric exam: Normal Affect, Normal Mood - Skin Skin Exam: Dry, Intact, Normal Color, Warm Results - Vital Signs Recent Vital Signs: Last Vital Signs Temp 98.6 F 10/03/17 08:32 Pulse 61 10/03/17 10:25 Resp 20 10/03/17 08:32 BP 128/82 10/03/17 10:25 Pulse Ox 98 10/03/17 08:32 - Labs Result Diagrams: 10/03/17 06:30 10/03/17 06:30 Labs: Laboratory Results - last 24 hr 10/02/17 10/02/17 10/02/17 21:20 21:35 22:00 WBC RBC Hgb Hct MCV MCH MCHC RDW Plt Count MPV Gran % Lymph % (Auto) [place] % (Auto) Eos % (Auto) Baso % (Auto) Gran # Lymph # [place] # Eos # Baso # Sodium Potassium Chloride Carbon Dioxide Anion Gap BUN Creatinine Est GFR ( Amer) Est GFR (Non-Af Amer) POC Glucose (mg/dL) 131 H Random Glucose Hemoglobin A1c Calcium Phosphorus Magnesium Total Bilirubin AST ALT Alkaline Phosphatase Troponin I < 0.01 Total Protein Albumin Globulin Albumin/Globulin Ratio Urine HCG, Qual Negative Urine Opiates Screen Urine Methadone Screen Ur Barbiturates Screen Ur Phencyclidine Scrn Ur Amphetamines Screen U Benzodiazepines Scrn U Oth Cocaine Metabols U Cannabinoids Screen Alcohol, Quantitative 10/02/17 10/03/17 10/03/17 22:10 03:15 06:30 WBC RBC Hgb Hct MCV MCH MCHC RDW Plt Count MPV Gran % Lymph % (Auto) [place] % (Auto) Eos % (Auto) Baso % (Auto) Gran # Lymph # [place] # Eos # Baso # Sodium Potassium Chloride Carbon Dioxide Anion Gap BUN Creatinine Est GFR ( Amer) Est GFR (Non-Af Amer) POC Glucose (mg/dL) Random Glucose Hemoglobin A1c 5.6 Calcium Phosphorus Magnesium Total Bilirubin AST ALT Alkaline Phosphatase Troponin I Total Protein Albumin Globulin Albumin/Globulin Ratio Urine HCG, Qual Urine Opiates Screen Positive H Urine Methadone Screen Negative Ur Barbiturates Screen Negative Ur Phencyclidine Scrn Negative Ur Amphetamines Screen Negative U Benzodiazepines Scrn Negative U Oth Cocaine Metabols Negative U Cannabinoids Screen Positive H Alcohol, Quantitative < 10 10/03/17 10/03/17 10/03/17 06:30 06:30 07:18 WBC 10.5 RBC 4.37 Hgb 11.7 L Hct 34.7 L MCV 79.4 L MCH 26.8 MCHC 33.7 RDW 13.6 Plt Count 264 MPV 9.8 Gran % 80.9 H Lymph % (Auto) 14.5 L [place] % (Auto) 4.3 Eos % (Auto) 0.1 L Baso % (Auto) 0.2 Gran # 8.52 H Lymph # 1.5 [place] # 0.5 Eos # 0.0 Baso # 0.02 Sodium 141 Potassium 4.1 Chloride 105 Carbon Dioxide 25 Anion Gap 16 BUN 11 Creatinine 0.8 Est GFR ( Amer) > 60 Est GFR (Non-Af Amer) > 60 POC Glucose (mg/dL) 105 Random Glucose 121 H Hemoglobin A1c Calcium 9.3 Phosphorus 3.2 Magnesium 1.8 Total Bilirubin 0.5 AST 31 ALT 46 Alkaline Phosphatase 47 Troponin I Total Protein 7.7 Albumin 4.5 Globulin 3.1 Albumin/Globulin Ratio 1.5 Urine HCG, Qual Urine Opiates Screen Urine Methadone Screen Ur Barbiturates Screen Ur Phencyclidine Scrn Ur Amphetamines Screen U Benzodiazepines Scrn U Oth Cocaine Metabols U Cannabinoids Screen Alcohol, Quantitative 10/03/17 11:13 WBC RBC Hgb Hct MCV MCH MCHC RDW Plt Count MPV Gran % Lymph % (Auto) [place] % (Auto) Eos % (Auto) Baso % (Auto) Gran # Lymph # [place] # Eos # Baso # Sodium Potassium Chloride Carbon Dioxide Anion Gap BUN Creatinine Est GFR ( Amer) Est GFR (Non-Af Amer) POC Glucose (mg/dL) 181 H Random Glucose Hemoglobin A1c Calcium Phosphorus Magnesium Total Bilirubin AST ALT Alkaline Phosphatase Troponin I Total Protein Albumin Globulin Albumin/Globulin Ratio Urine HCG, Qual Urine Opiates Screen Urine Methadone Screen Ur Barbiturates Screen Ur Phencyclidine Scrn Ur Amphetamines Screen U Benzodiazepines Scrn U Oth Cocaine Metabols U Cannabinoids Screen Alcohol, Quantitative Assessment & Plan - Assessment and Plan (Free Text) Assessment: Emerald Perez is a 27F w/ hx of DM, sickle cell trait, gastroparesis who presented to the ED with complaints of nausea, vomiting, abd pain, and generalized bone pain DM with known gastroparesis sickle cell disease/trait? Abdominal pain, vomiting in setting of narcotic pain medication Plan: - full liquid diet, advance slowly as tolerated - Anti-emetic therapy PRN - Would limit the use of narcotic pain medication as this may contribute to ongoing symptoms - Continue with supportive care, IVF hydration - Tight glycemic control, important in treatment of suspected gastroparesis - No planned GI intervention, further plan as per medical team D/W Dr. Gagnon <Nolan Gagnon - Last Filed: 10/03/17 14:57> Meds - Medications Medications: Current Medications Acetaminophen (Tylenol 325mg Tab) 650 mg PO Q6H PRN PRN Reason: Pain, Mild (1-3) Last Admin: 10/03/17 04:14 Dose: 650 mg Bisacodyl (Dulcolax) 10 mg RC Q24H PRN PRN Reason: constipation Heparin Sodium (Porcine) (Heparin) 5,000 units SC Q8 [facility] PRN Reason: Protocol Last Admin: 10/03/17 14:16 Dose: 5,000 units Sodium Chloride (Sodium Chloride 0.9%) 1,000 mls @ 100 mls/hr IV .Q10H [facility] Last Admin: 10/03/17 08:27 Dose: 100 mls/hr Ceftriaxone Sodium 1,000 mg/ (Sodium Chloride) 100 mls @ 100 mls/hr IVPB Q24H [facility] PRN Reason: Protocol Stop: 10/08/17 10:01 Last Admin: 10/03/17 10:24 Dose: 100 mls/hr Azithromycin (Zithromax 500mg In Ns) 500 mg in 250 mls @ 167 mls/hr IVPB DAILY [facility] PRN Reason: Protocol Stop: 10/08/17 10:01 Last Admin: 10/03/17 11:16 Dose: 167 mls/hr Insulin Human Regular (Humulin R Low) 0 units SC ACHS [facility] PRN Reason: Protocol Last Admin: 10/03/17 12:28 Dose: 1 units Lisinopril (Zestril) 10 mg PO DAILY [facility] Last Admin: 10/03/17 10:25 Dose: 10 mg Ondansetron HCl (Zofran Inj) 4 mg IVP Q4H PRN PRN Reason: Nausea/Vomiting Last Admin: 10/03/17 01:46 Dose: 4 mg Pantoprazole Sodium (Protonix Inj) 40 mg IVP DAILY [facility] Last Admin: 10/03/17 10:26 Dose: 40 mg Promethazine HCl (Phenergan Inj) 25 mg IM Q6 [facility] Results - Vital Signs Recent Vital Signs: Last Vital Signs Temp 98.6 F 10/03/17 08:32 Pulse 61 10/03/17 10:25 Resp 20 10/03/17 08:32 BP 128/82 10/03/17 10:25 Pulse Ox 98 10/03/17 08:32 - Labs Result Diagrams: 10/03/17 06:30 10/03/17 06:30 Labs: Laboratory Results - last 24 hr 10/02/17 10/02/17 10/02/17 21:20 21:35 22:00 WBC RBC Hgb Hct MCV MCH MCHC RDW Plt Count MPV Gran % Lymph % (Auto) [place] % (Auto) Eos % (Auto) Baso % (Auto) Gran # Lymph # [place] # Eos # Baso # Sodium Potassium Chloride Carbon Dioxide Anion Gap BUN Creatinine Est GFR ( Amer) Est GFR (Non-Af Amer) POC Glucose (mg/dL) 131 H Random Glucose Hemoglobin A1c Calcium Phosphorus Magnesium Total Bilirubin AST ALT Alkaline Phosphatase Troponin I < 0.01 Total Protein Albumin Globulin Albumin/Globulin Ratio Urine HCG, Qual Negative Urine Opiates Screen Urine Methadone Screen Ur Barbiturates Screen Ur Phencyclidine Scrn Ur Amphetamines Screen U Benzodiazepines Scrn U Oth Cocaine Metabols U Cannabinoids Screen Alcohol, Quantitative 10/02/17 10/03/17 10/03/17 22:10 03:15 06:30 WBC RBC Hgb Hct MCV MCH MCHC RDW Plt Count MPV Gran % Lymph % (Auto) [place] % (Auto) Eos % (Auto) Baso % (Auto) Gran # Lymph # [place] # Eos # Baso # Sodium Potassium Chloride Carbon Dioxide Anion Gap BUN Creatinine Est GFR ( Amer) Est GFR (Non-Af Amer) POC Glucose (mg/dL) Random Glucose Hemoglobin A1c 5.6 Calcium Phosphorus Magnesium Total Bilirubin AST ALT Alkaline Phosphatase Troponin I Total Protein Albumin Globulin Albumin/Globulin Ratio Urine HCG, Qual Urine Opiates Screen Positive H Urine Methadone Screen Negative Ur Barbiturates Screen Negative Ur Phencyclidine Scrn Negative Ur Amphetamines Screen Negative U Benzodiazepines Scrn Negative U Oth Cocaine Metabols Negative U Cannabinoids Screen Positive H Alcohol, Quantitative < 10 10/03/17 10/03/17 10/03/17 06:30 06:30 07:18 WBC 10.5 RBC 4.37 Hgb 11.7 L Hct 34.7 L MCV 79.4 L MCH 26.8 MCHC 33.7 RDW 13.6 Plt Count 264 MPV 9.8 Gran % 80.9 H Lymph % (Auto) 14.5 L [place] % (Auto) 4.3 Eos % (Auto) 0.1 L Baso % (Auto) 0.2 Gran # 8.52 H Lymph # 1.5 [place] # 0.5 Eos # 0.0 Baso # 0.02 Sodium 141 Potassium 4.1 Chloride 105 Carbon Dioxide 25 Anion Gap 16 BUN 11 Creatinine 0.8 Est GFR ( Amer) > 60 Est GFR (Non-Af Amer) > 60 POC Glucose (mg/dL) 105 Random Glucose 121 H Hemoglobin A1c Calcium 9.3 Phosphorus 3.2 Magnesium 1.8 Total Bilirubin 0.5 AST 31 ALT 46 Alkaline Phosphatase 47 Troponin I Total Protein 7.7 Albumin 4.5 Globulin 3.1 Albumin/Globulin Ratio 1.5 Urine HCG, Qual Urine Opiates Screen Urine Methadone Screen Ur Barbiturates Screen Ur Phencyclidine Scrn Ur Amphetamines Screen U Benzodiazepines Scrn U Oth Cocaine Metabols U Cannabinoids Screen Alcohol, Quantitative 10/03/17 11:13 WBC RBC Hgb Hct MCV MCH MCHC RDW Plt Count MPV Gran % Lymph % (Auto) [place] % (Auto) Eos % (Auto) Baso % (Auto) Gran # Lymph # [place] # Eos # Baso # Sodium Potassium Chloride Carbon Dioxide Anion Gap BUN Creatinine Est GFR ( Amer) Est GFR (Non-Af Amer) POC Glucose (mg/dL) 181 H Random Glucose Hemoglobin A1c Calcium Phosphorus Magnesium Total Bilirubin AST ALT Alkaline Phosphatase Troponin I Total Protein Albumin Globulin Albumin/Globulin Ratio Urine HCG, Qual Urine Opiates Screen Urine Methadone Screen Ur Barbiturates Screen Ur Phencyclidine Scrn Ur Amphetamines Screen U Benzodiazepines Scrn U Oth Cocaine Metabols U Cannabinoids Screen Alcohol, Quantitative Attending/Attestation - Attestation I have personally seen and examined this patient.: Yes I have fully participated in the care of the patient.: Yes I have reviewed all pertinent clinical information: Yes Notes (Text): 10/03/17 14:56 27 year old female with h/o diabetes, gastroparesis admitted with exacerbation. 1. Gastroparesis 2. Constipation Plan: -recommend liquid diet and advance as tolerate to low fat / small freq meals -start reglan 10 mg QID with meals and nighttime -recommend protonix 40 mg daily -start miralax bid -optimize glycemic control -minimize narcotics -supportive care with hydration
[2017-10-03] MEDS ORDERED: Morphine 2 mg/ml ISec IVP PRN (12:55)
--- NOTE | 2017-10-03 14:35 | CP.PCM.PN ---
<Nirmal Esteves - Last Filed: 10/03/17 14:52> Subjective - Date & Time of Evaluation Date of Evaluation: 10/03/17 Time of Evaluation: 07:30 - Subjective Subjective: Patient seen and examined at bedside with complaints of severe nausea and body pain. Patient states she wants dilaudid for pain and phenergan for nausea. Admits to cough, fevers, nausea, vomiting. Denies shortness of breath. Objective - Vital Signs/Intake and Output Vital Signs (last 24 hours): Temp Pulse Resp BP Pulse Ox 98.6 F 61 20 128/82 98 10/03/17 08:32 10/03/17 10:25 10/03/17 08:32 10/03/17 10:25 10/03/17 08:32 - Medications Medications: Current Medications Acetaminophen (Tylenol 325mg Tab) 650 mg PO Q6H PRN PRN Reason: Pain, Mild (1-3) Last Admin: 10/03/17 04:14 Dose: 650 mg Bisacodyl (Dulcolax) 10 mg RC Q24H PRN PRN Reason: constipation Heparin Sodium (Porcine) (Heparin) 5,000 units SC Q8 [facility] PRN Reason: Protocol Last Admin: 10/03/17 14:16 Dose: 5,000 units Sodium Chloride (Sodium Chloride 0.9%) 1,000 mls @ 100 mls/hr IV .Q10H [facility] Last Admin: 10/03/17 08:27 Dose: 100 mls/hr Ceftriaxone Sodium 1,000 mg/ (Sodium Chloride) 100 mls @ 100 mls/hr IVPB Q24H [facility] PRN Reason: Protocol Stop: 10/08/17 10:01 Last Admin: 10/03/17 10:24 Dose: 100 mls/hr Azithromycin (Zithromax 500mg In Ns) 500 mg in 250 mls @ 167 mls/hr IVPB DAILY [facility] PRN Reason: Protocol Stop: 10/08/17 10:01 Last Admin: 10/03/17 11:16 Dose: 167 mls/hr Insulin Human Regular (Humulin R Low) 0 units SC ACHS [facility] PRN Reason: Protocol Last Admin: 10/03/17 12:28 Dose: 1 units Lisinopril (Zestril) 10 mg PO DAILY [facility] Last Admin: 10/03/17 10:25 Dose: 10 mg Ondansetron HCl (Zofran Inj) 4 mg IVP Q4H PRN PRN Reason: Nausea/Vomiting Last Admin: 10/03/17 01:46 Dose: 4 mg Pantoprazole Sodium (Protonix Inj) 40 mg IVP DAILY [facility] Last Admin: 10/03/17 10:26 Dose: 40 mg Promethazine HCl (Phenergan Inj) 25 mg IM Q6 [facility] - Labs Labs: 10/03/17 06:30 10/03/17 06:30 - Constitutional Appears: Non-toxic, No Acute Distress - Head Exam Head Exam: ATRAUMATIC, NORMAL INSPECTION, NORMOCEPHALIC - Eye Exam Eye Exam: EOMI, Normal appearance - ENT Exam ENT Exam: Mucous Membranes Moist, Normal Exam - Respiratory Exam Respiratory Exam: Clear to Ausculation Bilateral, NORMAL BREATHING PATTERN. absent: Wheezes - Cardiovascular Exam Cardiovascular Exam: REGULAR RHYTHM, +S1, +S2 - GI/Abdominal Exam GI & Abdominal Exam: Soft, Normal Bowel Sounds - Back Exam Back Exam: NORMAL INSPECTION - Neurological Exam Neurological Exam: Alert, Awake, Oriented x3 - Psychiatric Exam Psychiatric exam: Normal Affect, Normal Mood - Skin Skin Exam: Intact, Normal Color, Warm Assessment and Plan - Assessment and Plan (Free Text) Assessment: 27 yo F with PMH of DM type I, GERD, gastroparesis, HTN, and sickle cell trait presents to ER complaining of unrelenting abdominal pain, nausea, and vomiting with inability to tolerate PO for the past three days, though she did eat soup today. Has presented to the ER multiple times in the past for the same complaints. Also noted to be complaining of cough, and constipation. Plan: Intractable nausea, vomiting, and abdominal pain - Likely 2/2 gastroparesis vs gastritis vs GERD vs hormonal contraceptive adverse effect - Diabetic female; may present with atypical chest pain; ordered trop and EKG; negative - Symptoms did not improve significantly with initial symptomatic treatment in the ER - CT abdomen/pelvis shows no evidence of acute intraabdominal findings; Abd US unremarkable - Moderately hyperglycemic on admission; pt reports compliance and good glycemic control at home - HgbA1C 5.6 - Phenergan for nause PRN - IVF hydration NS @100cc/hr - GI consulted; recommends liquid diet and advancement trial Possible Pneumonia - Patient complaining of productive cough, with leukocytosis - CT abdomen/pelvis shows evidence of possible atelectasis vs. small infiltrate in right lung base - Continue rocephin and zithromax Constipation - Patient reports chronic constipation, requiring manual disimpaction twice daily - Dulcolax suppository PRN for constipation Diabetes, type I - Patient diagnosed with type I DM 18 years ago; reports compliance with home medications and good glycemic control - hgbA1c 5.6 - Start SSI Low with accucheck qHS HTN - BP well controlled, continue to monitor - Lsinopril; hold for SBP <120, DBP <80 GERD -EGD in 11/[address] Rush revealed [place] grade A reflux esophagitis, gastroparesis, and gastritis. - Protonix IV GI PPx: Protonix DVT PPx: Heparin Patient seen, discussed, and reviewed with attending, Dr. Hannon <Siddhartha Hannon - Last Filed: 10/05/17 18:37> Objective - Vital Signs/Intake and Output Vital Signs (last 24 hours): Temp Pulse Resp BP Pulse Ox 98.5 F 75 20 132/86 97 10/04/17 07:30 10/04/17 09:32 10/04/17 07:30 10/04/17 09:32 10/04/17 07:30 - Labs Labs: 10/04/17 07:00 10/04/17 07:00 Attending/Attestation - Attestation I have personally seen and examined this patient.: Yes I have fully participated in the care of the patient.: Yes I have reviewed all pertinent clinical information, including history, physical exam and plan: Yes Notes (Text): I have seen and examined the patient at bedside. Agree with the above note with the following additions/ exceptions: Briefly this is 27 year old female with history of DM-2, GERD, gastoparesis, HTN , sickle cell trait, and history of recurrent bouts of vomiting with intervening periods of normal health who was admitted for evaluation of an episode of nausea, vomiting and inability to tolerate per oral. Patient reports that these symptoms occur almost every month around her menstrual cycle. Patient reports that she has dm however her hba1c even on prior visits have been in normal range. Patient reports taking metformin once a day most of the time. She had egd in the past suggestive of gastroparesis. I have advised patient to follow up in motility clinic in [facility]. Today patient continues to vomit most likely due to gastroparesis which can be narcotic induced vs hormonal vs cyclical vomiting syndrome. All imaging findings reviewed. Start phenargan. Counselling provided regarding narcotics and marijuana use. Start dulcolax. GI consult appreciated. Upon discharge patient will follow up with Dr Parkinson and Dr Verdugo. Dr Siddhartha Hannon
[2017-10-04] MEDS: Insulin Reg-LOW-Coverage SC SCH ×3 (00:20→12:03)
[2017-10-04] MEDS ORDERED: HYDROmorphone 0.5 mg/0.5 ml ISec IVP STA (06:27)
--- NOTE | 2017-10-04 06:30 | CP.PCM.PN ---
<Nirmal Esteves - Last Filed: 10/05/17 13:39> Subjective - Date & Time of Evaluation Date of Evaluation: 10/04/17 Time of Evaluation: 06:20 - Subjective Subjective: Patient seen and examined this morning. As per overnight nurse, patient did not complain of pain overnight however threw up after consuming water over night. Patient states that she tried really hard to not bother nurse regarding her pain but was not able to sleep through the night. She states this happens every month at this exact date and doesn't understand why. States whether or not she has her period it still occurs. Occurred throughout her and is still occurring on depo shot. Objective - Vital Signs/Intake and Output Vital Signs (last 24 hours): Temp Pulse Resp BP Pulse Ox 98.6 F 64 20 124/81 100 10/03/17 16:00 10/03/17 16:00 10/03/17 16:00 10/03/17 16:00 10/03/17 16:00 Intake and Output: 10/03/17 10/04/17 18:59 06:59 Intake Total 480 Balance 480 - Medications Medications: Current Medications Acetaminophen (Tylenol 325mg Tab) 650 mg PO Q6H PRN PRN Reason: Pain, Mild (1-3) Last Admin: 10/03/17 18:26 Dose: 650 mg Bisacodyl (Dulcolax) 10 mg RC Q24H PRN PRN Reason: constipation Heparin Sodium (Porcine) (Heparin) 5,000 units SC Q8 ALIYA PRN Reason: Protocol Last Admin: 10/03/17 21:05 Dose: 5,000 units Sodium Chloride (Sodium Chloride 0.9%) 1,000 mls @ 100 mls/hr IV .Q10H [facility] Last Admin: 10/03/17 21:06 Dose: 100 mls/hr Ceftriaxone Sodium 1,000 mg/ (Sodium Chloride) 100 mls @ 100 mls/hr IVPB Q24H ALIYA PRN Reason: Protocol Stop: 10/08/17 10:01 Last Admin: 10/03/17 10:24 Dose: 100 mls/hr Azithromycin (Zithromax 500mg In Ns) 500 mg in 250 mls @ 167 mls/hr IVPB DAILY ALIYA PRN Reason: Protocol Stop: 10/08/17 10:01 Last Admin: 10/03/17 11:16 Dose: 167 mls/hr Insulin Human Regular (Humulin R Low) 0 units SC ACHS [facility] PRN Reason: Protocol Last Admin: 10/04/17 00:20 Dose: Not Given Lisinopril (Zestril) 10 mg PO DAILY [facility] Last Admin: 10/03/17 10:25 Dose: 10 mg Ondansetron HCl (Zofran Inj) 4 mg IVP Q4H PRN PRN Reason: Nausea/Vomiting Last Admin: 10/04/17 04:29 Dose: 4 mg Pantoprazole Sodium (Protonix Inj) 40 mg IVP DAILY [facility] Last Admin: 10/03/17 10:26 Dose: 40 mg Promethazine HCl (Phenergan Inj) 25 mg IM Q6 [facility] Last Admin: 10/04/17 00:59 Dose: 25 mg - Labs Labs: 10/03/17 06:30 10/03/17 06:30 - Constitutional Appears: Non-toxic, No Acute Distress - Head Exam Head Exam: NORMAL INSPECTION, NORMOCEPHALIC - Eye Exam Eye Exam: EOMI, Normal appearance - ENT Exam ENT Exam: Mucous Membranes Moist - Neck Exam Neck Exam: Normal Inspection - Respiratory Exam Respiratory Exam: Clear to Ausculation Bilateral, NORMAL BREATHING PATTERN - Cardiovascular Exam Cardiovascular Exam: REGULAR RHYTHM, +S1, +S2 - GI/Abdominal Exam GI & Abdominal Exam: Soft, Normal Bowel Sounds - Back Exam Back Exam: NORMAL INSPECTION - Neurological Exam Neurological Exam: Alert, Awake, Oriented x3 - Psychiatric Exam Psychiatric exam: Normal Affect, Normal Mood - Skin Skin Exam: Intact, Normal Color, Warm Assessment and Plan - Assessment and Plan (Free Text) Assessment: 27 yo F with PMH of DM type I, GERD, gastroparesis, HTN, and sickle cell trait presents to ER complaining of unrelenting abdominal pain, nausea, and vomiting with inability to tolerate PO for the past three days, though she did eat soup today. Has presented to the ER multiple times in the past for the same complaints. Also noted to be complaining of cough, and constipation. Plan: Intractable nausea, vomiting, and abdominal pain - Likely due to cyclical vomiting syndrome vs gastroparesis due to narcotic use - CT abdomen/pelvis shows no evidence of acute intraabdominal findings; Abd US unremarkable - Moderately hyperglycemic on admission; pt reports compliance and good glycemic control at home - HgbA1C 5.6 - Phenergan for nausea PRN - GI consulted; recommends bowel regimen for home Possible Pneumonia - Patient complaining of productive cough, with leukocytosis - CT abdomen/pelvis shows evidence of possible atelectasis vs. small infiltrate in right lung base - Continue rocephin and zithromax, if patient is discharged will send home on PO doxycyline Constipation - Patient reports chronic constipation, requiring manual disimpaction twice daily - Dulcolax suppository PRN for constipation - Miralax added to regimen, if patient is still constipated GI recommends adding mag citrate HTN - BP well controlled, continue to monitor - Lsinopril; hold for SBP <120, DBP <80 GERD -EGD in 11/[address] Rush revealed LA grade A reflux esophagitis, gastroparesis, and gastritis. - Protonix IV GI PPx: Protonix DVT PPx: Heparin Patient seen, discussed, and reviewed with attending, Dr. Hannon <Siddhartha Hannon - Last Filed: 10/05/17 18:42> Objective - Vital Signs/Intake and Output Vital Signs (last 24 hours): Temp Pulse Resp BP Pulse Ox 98.5 F 75 20 132/86 97 10/04/17 07:30 10/04/17 09:32 10/04/17 07:30 10/04/17 09:32 10/04/17 07:30 - Labs Labs: 10/04/17 07:00 10/04/17 07:00 Attending/Attestation - Attestation I have personally seen and examined this patient.: Yes I have fully participated in the care of the patient.: Yes I have reviewed all pertinent clinical information, including history, physical exam and plan: Yes Notes (Text): I have seen and examined the patient at bedside. Agree with the above note with the following additions/ exceptions: Briefly this is 27 year old female with history of DM-2, GERD, gastoparesis, HTN , sickle cell trait, and history of recurrent bouts of vomiting with intervening periods of normal health who was admitted for evaluation of an episode of nausea, vomiting and inability to tolerate per oral. Patient reports that these symptoms occur almost every month around her menstrual cycle. Patient reports that she has dm however her hba1c even on prior visits have been in normal range. Patient reports taking metformin once a day most of the time. She had egd in the past suggestive of gastroparesis. I have advised patient to follow up in motility clinic in [facility]. These recurrent episodes of vomiting can be due to gastroparesis which can be narcotic induced vs hormonal vs cyclical vomiting syndrome. All imaging findings reviewed. Continue phenargan. Counselling provided regarding narcotics and marijuana use. Continue dulcolax. GI consult appreciated. Patiient feels better today. She is able to tolerate the diet and her vomiting has subsided. She also had CAP on CT scan and had mild cough. Advised her to complete doxycline course. Upon discharge patient will follow up with Dr Parkinson and Dr Verdugo. Dr Siddhartha Hannon
[2017-10-04] MEDS: Sodium Chloride 0.9% 1,000 ML IV SCH (06:40)
[2017-10-04 07:41] LABS: BASO # 0.03 K/mm3 (0.0-2.0); BASO % 0.4 % (0.0-3.0); EOS % 0.1 % (1.5-5.0); GRAN # 5.49 (1.4-6.5); GRAN % 77.2 % (50.0-68.0); HEMOGLOBIN 10.9 g/dL (12.0-16.0); LYMPH # 1.2 (1.2-3.4); LYMPH % 17.4 % (22.0-35.0); MEAN CELL VOLUME 78.7 fl (80.0-105.0); MEAN CORPUSCULAR HEMOGLOBIN 26.7 pg (25.0-35.0); MEAN CORPUSCULAR HGB CONC 33.9 g/dl (31.0-37.0); MEAN PLATELET VOLUME 9.5 fl (7.0-11.0); MONO # 0.4 (0.1-0.6); MONO % 4.9 % (1.0-6.0); RBC 4.09 10^6/uL (3.5-6.1); RED CELL DISTRIBUTION WIDTH 13.3 % (11.5-14.5); WHITE BLOOD COUNT 7.1 10^3/ul (4.5-11.0)
[2017-10-04 08:30] VITALS: BP 132/86; PULSE 75; TEMP 98.5; O2SAT 97
[2017-10-04 08:55] LABS: ALB/GLOB RATIO 1.3 (1.1-1.8); ALBUMIN 3.9 g/dL (3.0-4.8); ALT/SGPT 44 U/L (7-56); AST/SGOT 38 U/L (14-36); BLOOD UREA NITROGEN 5 mg/dL (7-21); CALCIUM 8.8 mg/dL (8.4-10.5); GFR AFRICAN-AMERICAN > 60; GFR NON-AFRICAN AMERICAN > 60
[2017-10-04] MEDS: Azithromycin 500MG/NS 250ml 500 MG/250 ML BAG IVPB SCH (09:32)
--- NOTE | 2017-10-04 10:25 | CP.PCM.PN ---
<Cydney Sexton - Last Filed: 10/04/17 10:31> Subjective - Date & Time of Evaluation Date of Evaluation: 10/04/17 Time of Evaluation: 08:00 - Subjective Subjective: PGY 4 Initial GI COnsult note Pt seen and examined bedside States that she still has abd pain, but improved reports x2 episodes of emesis since yesterday, but denies any hematemsis or coffee-ground emesis Denies melena Tolerated liquids Last BM 3 days ago ROS: 10 point ROS conducted neg other than above Objective - Vital Signs/Intake and Output Vital Signs (last 24 hours): Temp Pulse Resp BP Pulse Ox 98.5 F 75 20 132/86 97 10/04/17 07:30 10/04/17 09:32 10/04/17 07:30 10/04/17 09:32 10/04/17 07:30 Intake and Output: 10/04/17 10/04/17 06:59 18:59 Intake Total 480 Balance 480 - Medications Medications: Current Medications Acetaminophen (Tylenol 325mg Tab) 650 mg PO Q6H PRN PRN Reason: Pain, Mild (1-3) Last Admin: 10/03/17 18:26 Dose: 650 mg Bisacodyl (Dulcolax) 10 mg RC Q24H PRN PRN Reason: constipation Heparin Sodium (Porcine) (Heparin) 5,000 units SC Q8 ALIYA PRN Reason: Protocol Last Admin: 10/04/17 06:41 Dose: 5,000 units Sodium Chloride (Sodium Chloride 0.9%) 1,000 mls @ 100 mls/hr IV .Q10H [facility] Last Admin: 10/04/17 06:40 Dose: 100 mls/hr Ceftriaxone Sodium 1,000 mg/ (Sodium Chloride) 100 mls @ 100 mls/hr IVPB Q24H ALIYA PRN Reason: Protocol Stop: 10/08/17 10:01 Last Admin: 10/04/17 09:32 Dose: 100 mls/hr Azithromycin (Zithromax 500mg In Ns) 500 mg in 250 mls @ 167 mls/hr IVPB DAILY ALIYA PRN Reason: Protocol Stop: 10/08/17 10:01 Last Admin: 10/04/17 09:32 Dose: 167 mls/hr Insulin Human Regular (Humulin R Low) 0 units SC ACHS ALIYA PRN Reason: Protocol Last Admin: 10/04/17 07:51 Dose: Not Given Lisinopril (Zestril) 10 mg PO DAILY [facility] Last Admin: 10/04/17 09:32 Dose: 10 mg Ondansetron HCl (Zofran Inj) 4 mg IVP Q4H PRN PRN Reason: Nausea/Vomiting Last Admin: 10/04/17 04:29 Dose: 4 mg Pantoprazole Sodium (Protonix Inj) 40 mg IVP DAILY [facility] Last Admin: 10/04/17 09:32 Dose: 40 mg Promethazine HCl (Phenergan Inj) 25 mg IM Q6 [facility] Last Admin: 10/04/17 06:40 Dose: 25 mg - Labs Labs: 10/04/17 07:00 10/04/17 07:00 - Constitutional Appears: Well, No Acute Distress - Head Exam Head Exam: ATRAUMATIC, NORMOCEPHALIC - Eye Exam Eye Exam: Normal appearance - ENT Exam ENT Exam: Mucous Membranes Moist - Respiratory Exam Respiratory Exam: Clear to Ausculation Bilateral, NORMAL BREATHING PATTERN. absent: Rales, Rhonchi, Wheezes - Cardiovascular Exam Cardiovascular Exam: REGULAR RHYTHM, +S1, +S2 - GI/Abdominal Exam GI & Abdominal Exam: Soft, Normal Bowel Sounds. absent: Guarding, Rigid, Tenderness, Organomegaly - Extremities Exam Extremities Exam: absent: Joint Swelling, Pedal Edema - Neurological Exam Neurological Exam: Alert, Awake, Oriented x3 - Psychiatric Exam Psychiatric exam: Normal Affect, Normal Mood - Skin Skin Exam: Dry, Intact, Normal Color, Warm Assessment and Plan - Assessment and Plan (Free Text) Assessment: Emerald Perez is a 27F w/ hx of DM, sickle cell trait, gastroparesis who presented to the ED with complaints of nausea, vomiting, abd pain, and generalized bone pain DM with known gastroparesis sickle cell disease/trait? Abdominal pain, vomiting in setting of narcotic pain medication Constipation Plan: - advance to low residue - Anti-emetic therapy PRN - Would limit the use of narcotic pain medication as this may contribute to ongoing symptoms - Continue with supportive care, IVF hydration - Tight glycemic control, important in treatment of suspected gastroparesis - No planned GI intervention, further plan as per medical team - miralax TID, senna; can escalate to mag citrate if still unable to have BM - recommend enema D/W Dr. Gagnon <Nolan Gagnon - Last Filed: 10/04/17 15:20> Objective - Vital Signs/Intake and Output Vital Signs (last 24 hours): Temp Pulse Resp BP Pulse Ox 98.5 F 75 20 132/86 97 10/04/17 07:30 10/04/17 09:32 10/04/17 07:30 10/04/17 09:32 10/04/17 07:30 Intake and Output: 10/04/17 10/04/17 06:59 18:59 Intake Total 480 Balance 480 - Labs Labs: 10/04/17 07:00 10/04/17 07:00 Attending/Attestation - Attestation I have personally seen and examined this patient.: Yes I have fully participated in the care of the patient.: Yes I have reviewed all pertinent clinical information, including history, physical exam and plan: Yes Notes (Text): 10/04/17 15:19 27 year old female with h/o dm, gastroparesis admitted with exacerbation. 1. Gastroparesis 2. Constipation Plan: -improving -advance diet as tolerated -bowel regimen -ok for discharge -rest as above
[2017-10-04] MEDS ORDERED: Mineral Oil Enema 135 ml RC ONE (10:28)
[2017-10-04] MEDS ORDERED: POLYETHYLENE GLYCOL 3350 17 GM/Dose PACKET PO SCH (10:30)
--- NOTE | 2017-10-05 08:02 | CP.PCM.DIS ---
<Nirmal Esteves - Last Filed: 10/05/17 11:12> Provider - Provider Date of Admission: 10/02/17 20:01 Attending physician: Siddhartha Hannon MD Primary care physician: Valerio Padgett MD Consults: Gastroenterology: Dr. Gagnon Time Spent in preparation of Discharge (in minutes): 45 Diagnosis - Discharge Diagnosis (1) Constipation Status: Chronic Priority: Medium (2) Chronic abdominal pain Status: Chronic Priority: Medium (3) Persistent vomiting Status: Chronic Priority: Medium Hospital Course - Lab Results Lab Results: Most Recent Lab Values WBC 7.1 10^3/ul (4.5-11.0) D 10/04/17 07:00 RBC 4.09 10^6/uL (3.5-6.1) 10/04/17 07:00 Hgb 10.9 g/dL (12.0-16.0) L 10/04/17 07:00 Hct 32.2 % (36.0-48.0) L 10/04/17 07:00 MCV 78.7 fl (80.0-105.0) L 10/04/17 07:00 MCH 26.7 pg (25.0-35.0) 10/04/17 07:00 MCHC 33.9 g/dl (31.0-37.0) 10/04/17 07:00 RDW 13.3 % (11.5-14.5) 10/04/17 07:00 Plt Count 248 10^3/uL (120.0-450.0) 10/04/17 07:00 MPV 9.5 fl (7.0-11.0) 10/04/17 07:00 Gran % 77.2 % (50.0-68.0) H 10/04/17 07:00 Lymph % (Auto) 17.4 % (22.0-35.0) L 10/04/17 07:00 [place] % (Auto) 4.9 % (1.0-6.0) 10/04/17 07:00 Eos % (Auto) 0.1 % (1.5-5.0) L 10/04/17 07:00 Baso % (Auto) 0.4 % (0.0-3.0) 10/04/17 07:00 Gran # 5.49 (1.4-6.5) 10/04/17 07:00 Lymph # 1.2 (1.2-3.4) 10/04/17 07:00 [place] # 0.4 (0.1-0.6) 10/04/17 07:00 Eos # 0.0 (0.0-0.7) 10/04/17 07:00 Baso # 0.03 K/mm3 (0.0-2.0) 10/04/17 07:00 Sodium 140 mmol/L (132-148) 10/04/17 07:00 Potassium 3.9 mmol/L (3.6-5.0) 10/04/17 07:00 Chloride 105 mmol/L (98-107) 10/04/17 07:00 Carbon Dioxide 24 mmol/L (21-33) 10/04/17 07:00 Anion Gap 15 (10-20) 10/04/17 07:00 BUN 5 mg/dL (7-21) L 10/04/17 07:00 Creatinine 0.6 mg/dl (0.7-1.2) L 10/04/17 07:00 Est GFR ( Amer) > 60 10/04/17 07:00 Est GFR (Non-Af Amer) > 60 10/04/17 07:00 POC Glucose (mg/dL) 133 mg/dL (65-110) H 10/04/17 11:14 Random Glucose 130 mg/dL (70-110) H 10/04/17 07:00 Hemoglobin A1c 5.6 % (4.2-6.5) 10/02/17 22:10 Calcium 8.8 mg/dL (8.4-10.5) 10/04/17 07:00 Phosphorus 3.2 mg/dL (2.5-4.5) 10/03/17 06:30 Magnesium 1.8 mg/dL (1.7-2.2) 10/03/17 06:30 Total Bilirubin 0.5 mg/dL (0.2-1.3) 10/04/17 07:00 AST 38 U/L (14-36) H D 10/04/17 07:00 ALT 44 U/L (7-56) 10/04/17 07:00 Alkaline Phosphatase 44 U/L (38-126) 10/04/17 07:00 Troponin I < 0.01 ng/mL 10/02/17 21:35 Total Protein 6.8 g/dL (5.8-8.3) 10/04/17 07:00 Albumin 3.9 g/dL (3.0-4.8) 10/04/17 07:00 Globulin 2.9 gm/dL 10/04/17 07:00 Albumin/Globulin Ratio 1.3 (1.1-1.8) 10/04/17 07:00 Lipase 123 U/L (23-300) 10/02/17 16:35 Urine Color Light yellow (YELLOW) 10/02/17 16:11 Urine Appearance Clear (CLEAR) 10/02/17 16:11 Urine pH 6.0 (4.7-8.0) 10/02/17 16:11 Ur Specific [place] 1.020 (1.005-1.035) 10/02/17 16:11 Urine Protein 30 mg/dL (<30 mg/dL) H 10/02/17 16:11 Urine Glucose (UA) Negative mg/dL (NEGATIVE) 10/02/17 16:11 Urine Ketones Negative mg/dL (NEGATIVE) 10/02/17 16:11 Urine Blood Small (NEGATIVE) H 10/02/17 16:11 Urine Nitrate Negative (NEGATIVE) 10/02/17 16:11 Urine Bilirubin Negative (NEGATIVE) 10/02/17 16:11 Urine Urobilinogen 0.2 E.U./dL (<1 E.U./dL) 10/02/17 16:11 Ur Leukocyte Esterase Negative Tegan/uL (NEGATIVE) 10/02/17 16:11 Urine RBC 1 - 3 /hpf (0-2) 10/02/17 16:11 Urine WBC 0 - 2 /hpf (0-6) 10/02/17 16:11 Ur Epithelial Cells 0 - 2 /hpf (0-5) 10/02/17 16:11 Urine Bacteria Small (NEG) 10/02/17 16:11 Urine HCG, Qual Negative (NEGATIVE) 10/02/17 22:00 Urine Opiates Screen Positive (NEGATIVE) H 10/03/17 03:15 Urine Methadone Screen Negative (NEGATIVE) 10/03/17 03:15 Ur Barbiturates Screen Negative (NEGATIVE) 12/27/17 03:15 Ur Phencyclidine Scrn Negative (NEGATIVE) 10/03/17 03:15 Ur Amphetamines Screen Negative (NEGATIVE) 10/03/17 03:15 U Benzodiazepines Scrn Negative (NEGATIVE) 10/03/17 03:15 U Oth Cocaine Metabols Negative (NEGATIVE) 10/03/17 03:15 U Cannabinoids Screen Positive (NEGATIVE) H 10/03/17 03:15 Alcohol, Quantitative < 10 mg/dL (0-10) 10/03/17 06:30 - Hospital Course Hospital Course: 27 yo F with PMH of DM type I, GERD, gastroparesis, HTN, and sickle cell trait presents to ER complaining of unrelenting abdominal pain, nausea, and vomiting with inability to tolerate PO for the past three days. She has had similar symptoms, on and off, for about 4 years, which she associates with increased stress. She typically gets these symptoms around the time of her period. Patient seen and examined this morning. During course of hospital stay images done included CT abdomen/pelvis which revealed probable atelectasis versus a small infiltrate in the right lung base with no evidence of acute intraabdominal process. Doxycylcine will be provided for patient due to small infiltrate in right lung base found on imaging. Gallbladder and common bile duct ultrasound revealed no significant or acute findings to account for, chest x-ray showed no active disease. Gastroenterology was consulted and recommended bowel regimen. As per overnight nurse, patient did not complain of pain overnight however threw up after consuming water over night. Patient states that she tried really hard to not bother nurse regarding her pain but was not able to sleep through the night. She states this happens every month at this exact date and doesn't understand why. States whether or not she has her period it still occurs. Occurred throughout her and is still occurring on depo shot. Patient's presentation fits the characteristics of cyclical vomiting syndrome. Due to this diagnosis, it's recommended to give amitriptyline instead of narcotics which may only cause further cause gastroparesis which will lead to increased nausea and vomiting. This was explained and discussed with patient. Patient was willing to give the new medication a try. Patient was then discharged with prescriptions to pick out hand bowel regimen medications, amitriptyline, and doxycycline at [facility] . Discharge Exam - Head Exam Head Exam: ATRAUMATIC, NORMOCEPHALIC - Eye Exam Eye Exam: EOMI, Normal appearance - Respiratory Exam Respiratory Exam: NORMAL BREATHING PATTERN, UNREMARKABLE - Cardiovascular Exam Cardiovascular Exam: REGULAR RHYTHM, +S1, +S2 - GI/Abdominal Exam GI & Abdominal Exam: Normal Bowel Sounds, Unremarkable - Neurological Exam Neurological exam: Alert, CN II-XII Intact, Oriented x3 - Psychiatric Exam Psychiatric exam: Normal Affect, Normal Mood - Skin Skin Exam: Intact, Normal Color, Warm Discharge Plan - Discharge Medications Prescriptions: Amitriptyline [Elavil] 10 mg PO HS 7 Days #7 tab Doxycycline Hyclate 100 mg PO BID 7 Days #14 capsule Magnesium Citrate [[facility] Magnesium Citrate] 1.75 gm PO ONCE 1 Days #1 bottle Polyethylene Glycol 3350 [Miralax] 17 gm PO TID 14 Days #42 packet Sennosides [Senna] 8.6 mg PO DAILY 5 Days #5 tablet - Follow Up Plan Condition: STABLE Disposition: HOME/ ROUTINE Instructions: Constipation (DC), Sickle Cell Anemia (DC), Acute Nausea and Vomiting (GEN), Abdominal Pain (ED) Additional Instructions: 1. Please follow up with your PMD within 3-5 days of discharge regarding this hospitalization. 2. Please go to your pharmacy and fill prescriptions and take as prescribed. 3. Please do not hesistate to return to ED if symptoms return or worsen. Referrals: Valerio Padgett MD [Primary Care Provider] - <Siddhartha Hannon - Last Filed: 10/05/17 18:42> Provider - Provider Date of Admission: 10/02/17 20:01 Attending physician: Siddhartha Hannon MD Primary care physician: Valerio Padgett MD Hospital Course - Lab Results Lab Results: Most Recent Lab Values WBC 7.1 10^3/ul (4.5-11.0) D 10/04/17 07:00 RBC 4.09 10^6/uL (3.5-6.1) 10/04/17 07:00 Hgb 10.9 g/dL (12.0-16.0) L 10/04/17 07:00 Hct 32.2 % (36.0-48.0) L 10/04/17 07:00 MCV 78.7 fl (80.0-105.0) L 10/04/17 07:00 MCH 26.7 pg (25.0-35.0) 10/04/17 07:00 MCHC 33.9 g/dl (31.0-37.0) 10/04/17 07:00 RDW 13.3 % (11.5-14.5) 10/04/17 07:00 Plt Count 248 10^3/uL (120.0-450.0) 10/04/17 07:00 MPV 9.5 fl (7.0-11.0) 10/04/17 07:00 Gran % 77.2 % (50.0-68.0) H 10/04/17 07:00 Lymph % (Auto) 17.4 % (22.0-35.0) L 10/04/17 07:00 [place] % (Auto) 4.9 % (1.0-6.0) 10/04/17 07:00 Eos % (Auto) 0.1 % (1.5-5.0) L 10/04/17 07:00 Baso % (Auto) 0.4 % (0.0-3.0) 10/04/17 07:00 Gran # 5.49 (1.4-6.5) 10/04/17 07:00 Lymph # 1.2 (1.2-3.4) 10/04/17 07:00 [place] # 0.4 (0.1-0.6) 10/04/17 07:00 Eos # 0.0 (0.0-0.7) 10/04/17 07:00 Baso # 0.03 K/mm3 (0.0-2.0) 10/04/17 07:00 Sodium 140 mmol/L (132-148) 10/04/17 07:00 Potassium 3.9 mmol/L (3.6-5.0) 10/04/17 07:00 Chloride 105 mmol/L (98-107) 10/04/17 07:00 Carbon Dioxide 24 mmol/L (21-33) 10/04/17 07:00 Anion Gap 15 (10-20) 10/04/17 07:00 BUN 5 mg/dL (7-21) L 10/04/17 07:00 Creatinine 0.6 mg/dl (0.7-1.2) L 10/04/17 07:00 Est GFR ( Amer) > 60 10/04/17 07:00 Est GFR (Non-Af Amer) > 60 10/04/17 07:00 POC Glucose (mg/dL) 133 mg/dL (65-110) H 10/04/17 11:14 Random Glucose 130 mg/dL (70-110) H 10/04/17 07:00 Hemoglobin A1c 5.6 % (4.2-6.5) 10/02/17 22:10 Calcium 8.8 mg/dL (8.4-10.5) 10/04/17 07:00 Phosphorus 3.2 mg/dL (2.5-4.5) 10/03/17 06:30 Magnesium 1.8 mg/dL (1.7-2.2) 10/03/17 06:30 Total Bilirubin 0.5 mg/dL (0.2-1.3) 10/04/17 07:00 AST 38 U/L (14-36) H D 10/04/17 07:00 ALT 44 U/L (7-56) 10/04/17 07:00 Alkaline Phosphatase 44 U/L (38-126) 10/04/17 07:00 Troponin I < 0.01 ng/mL 10/02/17 21:35 Total Protein 6.8 g/dL (5.8-8.3) 10/04/17 07:00 Albumin 3.9 g/dL (3.0-4.8) 10/04/17 07:00 Globulin 2.9 gm/dL 10/04/17 07:00 Albumin/Globulin Ratio 1.3 (1.1-1.8) 10/04/17 07:00 Lipase 123 U/L (23-300) 10/02/17 16:35 Urine Color Light yellow (YELLOW) 10/02/17 16:11 Urine Appearance Clear (CLEAR) 10/02/17 16:11 Urine pH 6.0 (4.7-8.0) 10/02/17 16:11 Ur Specific [place] 1.020 (1.005-1.035) 10/02/17 16:11 Urine Protein 30 mg/dL (<30 mg/dL) H 10/02/17 16:11 Urine Glucose (UA) Negative mg/dL (NEGATIVE) 10/02/17 16:11 Urine Ketones Negative mg/dL (NEGATIVE) 10/02/17 16:11 Urine Blood Small (NEGATIVE) H 10/02/17 16:11 Urine Nitrate Negative (NEGATIVE) 10/02/17 16:11 Urine Bilirubin Negative (NEGATIVE) 10/02/17 16:11 Urine Urobilinogen 0.2 E.U./dL (<1 E.U./dL) 10/02/17 16:11 Ur Leukocyte Esterase Negative Tegan/uL (NEGATIVE) 10/02/17 16:11 Urine RBC 1 - 3 /hpf (0-2) 10/02/17 16:11 Urine WBC 0 - 2 /hpf (0-6) 10/02/17 16:11 Ur Epithelial Cells 0 - 2 /hpf (0-5) 10/02/17 16:11 Urine Bacteria Small (NEG) 10/02/17 16:11 Urine HCG, Qual Negative (NEGATIVE) 10/02/17 22:00 Urine Opiates Screen Positive (NEGATIVE) H 10/03/17 03:15 Urine Methadone Screen Negative (NEGATIVE) 10/03/17 03:15 Ur Barbiturates Screen Negative (NEGATIVE) 10/03/17 03:15 Ur Phencyclidine Scrn Negative (NEGATIVE) 10/03/17 03:15 Ur Amphetamines Screen Negative (NEGATIVE) 10/03/17 03:15 U Benzodiazepines Scrn Negative (NEGATIVE) 10/03/17 03:15 U Oth Cocaine Metabols Negative (NEGATIVE) 10/03/17 03:15 U Cannabinoids Screen Positive (NEGATIVE) H 10/03/17 03:15 Alcohol, Quantitative < 10 mg/dL (0-10) 10/03/17 06:30 Attending/Attestation - Attestation I have personally seen and examined this patient.: Yes I have fully participated in the care of the patient.: Yes I have reviewed all pertinent clinical information, including history, physical exam and plan: Yes Notes (Text): I have seen and examined the patient at bedside. Agree with the above note with the following additions/ exceptions: Briefly this is 27 year old female with history of DM-2, GERD, gastoparesis, HTN , sickle cell trait, and history of recurrent bouts of vomiting with intervening periods of normal health who was admitted for evaluation of an episode of nausea, vomiting and inability to tolerate per oral. Patient reports that these symptoms occur almost every month around her menstrual cycle. Patient reports that she has dm however her hba1c even on prior visits have been in normal range. Patient reports taking metformin once a day most of the time. She had egd in the past suggestive of gastroparesis. I have advised patient to follow up in motility clinic in [facility]. These recurrent episodes of vomiting can be due to gastroparesis which can be narcotic induced vs hormonal vs cyclical vomiting syndrome. All imaging findings reviewed. Continue phenargan. Counselling provided regarding narcotics and marijuana use. Continue dulcolax. GI consult appreciated. Patient feels better today. She is able to tolerate the diet and her vomiting has subsided. She also had CAP on CT scan and had mild cough. Advised her to complete doxycycline course. Upon discharge patient will follow up with Dr Valerio Padgett and Dr Verdugo. Dr Siddhartha Hannon
--- NOTE | 2017-10-09 17:45 | CARD ---
APPROVED REPORT EKG Measurement Heart [id number] 128P [id number] <Conclusion> Normal sinus rhythm with sinus arrhythmia Normal ECG
== END 2017-10-04 14:10 | disposition home or self-care (01) ==
LOC: ED 15:25 → ERH 20:01 → 5RNO 21:55
PROVIDERS: ADMIT Hospitalist; ATTEND Hospitalist
DX: K59.03 Drug induced constipation (principal); G89.29 Other chronic pain; R11.10 Vomiting, unspecified; Z80.3 Family history of malignant neoplasm of breast; Z83.3 Family history of diabetes mellitus; D57.1 Sickle-cell disease without crisis; E10.43 Type 1 diabetes mellitus with diabetic autonomic (poly)neuropathy; F12.90 Cannabis use, unspecified, uncomplicated; F17.210 Nicotine dependence, cigarettes, uncomplicated; I10 Essential (primary) hypertension; J18.9 Pneumonia, unspecified organism; K21.9 Gastro-esophageal reflux disease without esophagitis; K31.84 Gastroparesis; K76.0 Fatty (change of) liver, not elsewhere classified; M81.0 Age-related osteoporosis without current pathological fracture; Z79.4 Long term (current) use of insulin
CPT/HCPCS: 36415; 71010; 74177; 76705; 80053; 80320; 80324; 80345; 80346; 80349; 80353; 80358; 80361; 81001; 82948; 83036; 83690; 83735; 83992; 84100; 84484; 84703; 85025; 93005; 96365; 96367; 96372; 96375; 96376; 99285; C9113; G0378; J0456; J0696; J1170; J1200; J1644; J1885; J2270; J2405; J2550; J2765; J3475; J7040; Q9967

== ENCOUNTER 2017-10-18 02:04 | Observation (INO) | payer OTHER ==
[2017-10-18 02:04] VITALS: BMI 23.8
--- NOTE | 2017-10-18 02:28 | ED PDOC ---
Arrival/HPI - General Chief Complaint: GI Problem Time Seen by Provider: 10/18/17 02:17 Historian: Patient - History of Present Illness Narrative History of Present Illness (Text): 10/18/17 02:28 Emerald Perez is a 27 year old female, whose past medical history includes hypertension, GERD, diabetes, gastroparesis, and sickle cell trait, who presents to the Emergency department complaining of nausea and recurrent vomiting for the past 3-4 days. Patient also reports associated abdominal cramping. Patient denies any fever, chills, chest pain, shortness of breath, diarrhea, urinary symptoms, back pain, neck pain, headache, dizziness, or any other complaints. Time/Duration: < week (4 days) Symptom Onset: Gradual Symptom Course: Unchanged Activities at Onset: Light Context: Home Past Medical History - Provider Review Nursing Documentation Reviewed: Yes - Infectious Disease Hx of Infectious Diseases: None - Tetanus Immunization Tetanus Immunization: Unknown - Cardiac Hx Hypertension: Yes - Pulmonary Hx Respiratory Disorders: No - Neurological Hx Neurological Disorder: No - HEENT Hx HEENT Disorder: No - Renal Hx Renal Disorder: No - Endocrine/Metabolic Hx Diabetes Mellitus Type 1: Yes (dx 9 yrs old) - Hematological/Oncological Hx Sickle Cell Disease: Yes ("JUST FOUND OUT A MONTH AGO") - Integumentary Hx Dermatological Disorder: No - Musculoskeletal/Rheumatological Hx Osteoporosis: Yes (pt unsure of this hx) - Gastrointestinal Hx Gastritis: Yes - Genitourinary/Gynecological Hx Genitourinary Disorders: No - Psychiatric Hx Anxiety: Yes Hx Depression: Yes Hx Substance Use: Yes - Past Surgical History Past Surgical History: Non-Contributing - Anesthesia Hx Anesthesia: Yes Hx Anesthesia Reactions: No Hx Malignant Hyperthermia: No - Suicidal Assessment Feels Threatened In Home Enviroment: No Family/Social History - Physician Review Nursing Documentation Reviewed: Yes Family/Social History: Unknown Family HX Smoking Status: Light Smoker < 10 Cigarettes Daily Hx Alcohol Use: No Hx Substance Use: Yes Substance used: weed Hx Substance Use Treatment: No Allergies/Home Meds Allergies/Adverse Reactions: Allergies No Known Allergies Allergy (Verified 10/18/17 02:16) Home Medications: Home Meds Medication Instructions Recorded Confirmed metFORMIN [glucOPHAGE] 500 mg PO BID 07/26/17 10/02/17 Lisinopril 1 tab PO DAILY 09/08/17 10/02/17 Protonix 40 mg PO DAILY 09/08/17 10/02/17 Ondansetron ODT [Zofran ODT] 4 mg PO PRN PRN 10/02/17 10/02/17 Review of Systems - Physician Review All systems were reviewed & negative as marked: Yes - Review of Systems Constitutional: Normal. absent: Fevers Eyes: Normal ENT: Normal Respiratory: Normal. absent: SOB, Cough Cardiovascular: Normal. absent: Chest Pain Gastrointestinal: Abdominal Pain, Nausea, Vomiting. absent: Diarrhea Genitourinary Female: Normal. absent: Dysuria, Frequency, Hematuria, Urine Output Changes Musculoskeletal: Normal. absent: Back Pain, Neck Pain Skin: Normal. absent: Rash Neurological: Normal. absent: Headache, Dizziness Endocrine: Normal Hemo/Lymphatic: Normal Psychiatric: Normal Physical Exam Vital Signs Reviewed: Yes Vital Signs Temp Pulse Resp BP Pulse Ox 10/18/17 03:17 98.4 F 83 18 157/106 H 98 10/18/17 02:12 98.4 F 83 18 157/106 H 97 Temperature: Afebrile Blood Pressure: Normal Pulse: Regular Respiratory Rate: Normal Appearance: Positive for: Well-Appearing, Non-Toxic, Comfortable Pain Distress: None Mental Status: Positive for: Alert and Oriented X 3 - Systems Exam Head: Present: Atraumatic, Normocephalic Pupils: Present: PERRL Extroacular Muscles: Present: EOMI Conjunctiva: Present: Normal Mouth: Present: Moist Mucous Membranes Neck: Present: Normal Range of Motion Respiratory/Chest: Present: Clear to Auscultation, Good Air Exchange. No: Respiratory Distress, Accessory Muscle Use Cardiovascular: Present: Regular Rate and Rhythm, Normal S1, S2. No: Murmurs Abdomen: Present: Normal Bowel Sounds. No: Tenderness, Distention, Peritoneal Signs Back: Present: Normal Inspection Upper Extremity: Present: Normal Inspection. No: Cyanosis, Edema Lower Extremity: Present: Normal Inspection. No: Edema Neurological: Present: GCS=15, CN II-XII Intact, Speech Normal Skin: Present: Warm, Dry, Normal Color. No: Rashes Psychiatric: Present: Alert, Oriented x 3, Normal Insight, Normal Concentration Medical Decision Making ED Course and Treatment: 10/18/17 02:28 Impression: 27 year old female complaining of nausea, recurrent vomiting, and abdominal cramping. Plan: -- Labs -- Urinalysis -- IV fluids -- Zofran -- Pepcid -- Toradol -- Reassess and disposition Prior Visits: Notes and results from previous visits were reviewed. On 10/02/2017, pt was seen in the Emergency department for abdominal pain, nausea, and vomiting. Pt was admitted to the hospital for further evaluation. Progress Notes: 10/18/17 04:12 Case discussed with emergency medical dispatcher regional sales associate and Dr. Barlow, who are aware and agree with plan. Accepts pt in to hospitalist service. Pt will go to [facility] observation for intractable vomiting and gastroparesis. - Lab Interpretations Lab Results: 10/18/17 02:52 10/18/17 02:52 Lab Results 10/18/17 03:02: Urine Color Yellow, Urine Appearance Clear, Urine pH 6.0, Ur Specific [place] 1.025, Urine Protein 100 H, Urine Glucose (UA) Negative, Urine Ketones Negative, Urine Blood Moderate H, Urine Nitrate Negative, Urine Bilirubin Negative, Urine Urobilinogen 0.2, Ur Leukocyte Esterase Negative, Urine RBC 2 - 5, Urine WBC 0 - 2, Ur Epithelial Cells 0 - 2, Urine Bacteria Few , Urine HCG, Qual Negative 10/18/17 02:52: WBC 13.9 H D, RBC 4.87, Hgb 13.4 D, Hct 38.9, MCV 79.9 L, MCH 27.5, MCHC 34.4, RDW 14.3, Plt Count 319, MPV 9.6 10/18/17 02:52: Sodium 142, Potassium 3.9, Chloride 96 L, Carbon Dioxide 29, Anion Gap 21 H, BUN 18, Creatinine 0.7, Est GFR ( Amer) > 60, Est GFR ( Non-Af Amer) > 60, Random Glucose 185 H, Calcium 10.4, Total Bilirubin 0.8, AST 37 H, ALT 60 H, Alkaline Phosphatase 57, Total Protein 9.5 H, Albumin 5.2 H, Globulin 4.3, Albumin/Globulin Ratio 1.2, Lipase 52 I have reviewed the lab results: Yes - Medication Orders Current Medication Orders: Sodium Chloride (Sodium Chloride 0.9%) 1,000 mls @ 100 mls/hr IV .Q10H ALIYA Last Admin: 10/18/17 04:52 Dose: 100 mls/hr eMAR Start Stop Document 10/18/17 04:52 IT (Rec: 10/18/17 04:52 [place] [facility] [id number] Intravenous Solution Start Date 10/18/17 Start Time 04:52 Insulin Human Regular (Humulin R Low) 0 units SC Q6H ALIYA PRN Reason: Protocol Last Admin: 10/18/17 04:53 Dose: Not Given Non-Admin Reason: Blood Sugar Parameter MAR Blood Glucose Document 10/18/17 04:53 IT (Rec: 10/18/17 04:53 IT [facility] [id number][place] Blood Glucose Finger Stick Blood Glucose (70-120) 147 Ketorolac Tromethamine (Toradol) 60 mg IM Q12H PRN PRN Reason: Pain, severe (8-10) Stop: 10/23/17 04:16 Ondansetron HCl (Zofran Inj) 4 mg IVP Q4H PRN PRN Reason: Nausea/Vomiting Pantoprazole Sodium (Protonix Inj) 40 mg IVP Q12 ALIYA Vitamin A (Vitamin A & D Oint Ud Foilpak) 1 ea TOP Q2 PRN PRN Reason: Dry mouth Discontinued Medications Diphenhydramine HCl (Benadryl) 25 mg IVP ONCE ONE Stop: 10/18/17 04:00 Last Admin: 10/18/17 04:12 Dose: 25 mg IVP Administration Document 10/18/17 04:12 IT (Rec: 10/18/17 04:12 IT [facility] [id number][place] Charges for Administration # of IVP Administrations 1 Famotidine (Pepcid) 20 mg IVP STAT STA Stop: 10/18/17 02:31 Last Admin: 10/18/17 03:03 Dose: 20 mg IVP Administration Document 10/18/17 03:03 IT (Rec: 10/18/17 03:03 IT [facility] [id number][place] Charges for Administration # of IVP Administrations 1 Hydromorphone HCl (Dilaudid) 1 mg IVP STAT STA Stop: 10/18/17 04:05 Last Admin: 10/18/17 04:11 Dose: 1 mg MAR Pain Assessment Document 10/18/17 04:11 IT (Rec: 10/18/17 04:12 IT [facility] [id number][place] Pain Reassessment Is this a pain reassessment? No Sleep Is patient sleeping during reassessment? No Presence of Pain Presence of Pain Yes Location Pain Location Body Site Generalized IVP Administration Document 10/18/17 04:11 IT (Rec: 10/18/17 04:12 IT [facility] [id number][place] Charges for Administration # of IVP Administrations 1 Sodium Chloride (Sodium Chloride 0.9%) 1,000 mls @ 999 mls/hr IV .Q1H1M STA Stop: 10/18/17 03:30 Last Admin: 10/18/17 03:03 Dose: 999 mls/hr eMAR Start Stop Document 10/18/17 03:03 IT (Rec: 10/18/17 03:03 IT [facility] [id number][place] Intravenous Solution Start Date 10/18/17 Start Time 03:03 End Date 10/18/17 End time 04:03 Total Infusion Time 60 Ketorolac Tromethamine (Toradol) 30 mg IVP ONCE ONE Stop: 10/18/17 02:31 Last Admin: 10/18/17 03:03 Dose: 30 mg MAR Pain Assessment Document 10/18/17 03:03 IT (Rec: 10/18/17 03:03 IT [facility] [id number][place] Pain Reassessment Is this a pain reassessment? No Sleep Is patient sleeping during reassessment? No Presence of Pain Presence of Pain Yes IVP Administration Document 10/18/17 03:03 IT (Rec: 10/18/17 03:03 IT [facility] [id number][place] Charges for Administration # of IVP Administrations 1 Ondansetron HCl (Zofran Inj) 4 mg IVP ONCE ONE Stop: 10/18/17 02:31 Last Admin: 10/18/17 03:03 Dose: 4 mg IVP Administration Document 10/18/17 03:03 IT (Rec: 10/18/17 03:04 IT [facility] [id number][place] Charges for Administration # of IVP Administrations 1 - Scribe Statement The provider has reviewed the documentation as recorded by the Kyaw Velázquez Provider Scribe Attestation: All medical record entries made by the Scribe were at my direction and personally dictated by me. I have reviewed the chart and agree that the record accurately reflects my personal performance of the history, physical exam, medical decision making, and the department course for this patient. I have also personally directed, reviewed, and agree with the discharge instructions and disposition. Disposition/Present on Arrival - Present on Arrival Any Indicators Present on Arrival: No History of DVT/PE: No History of Uncontrolled Diabetes: Yes Urinary Catheter: No History of Decub. Ulcer: No History Surgical Site Infection Following: None - Disposition Have Diagnosis and Disposition been Completed?: Yes Diagnosis: Gastroparesis, Persistent vomiting, Abdominal pain Disposition: HOSPITALIZED Disposition Time: 04:07 Patient Problems: Current Active Problems Problem Status Onset Abdominal pain Acute Gastroparesis Acute Persistent vomiting Chronic Condition: STABLE
[2017-10-18] MEDS ORDERED: Sodium Chloride 0.9% 1,000 ML IV STA (02:30)
[2017-10-18 03:15] LABS: MEAN CELL VOLUME 79.9 fl (80.0-105.0); MEAN CORPUSCULAR HEMOGLOBIN 27.5 pg (25.0-35.0); MEAN CORPUSCULAR HGB CONC 34.4 g/dl (31.0-37.0); MEAN PLATELET VOLUME 9.6 fl (7.0-11.0); RBC 4.87 10^6/uL (3.5-6.1); RED CELL DISTRIBUTION WIDTH 14.3 % (11.5-14.5); WHITE BLOOD COUNT 13.9 10^3/ul (4.5-11.0)
[2017-10-18 03:16] LABS: ALB/GLOB RATIO 1.2 (1.1-1.8); ALBUMIN 5.2 g/dL (3.0-4.8); ALT/SGPT 60 U/L (7-56); AST/SGOT 37 U/L (14-36); BLOOD UREA NITROGEN 18 mg/dL (7-21); CALCIUM 10.4 mg/dL (8.4-10.5); GFR AFRICAN-AMERICAN > 60; GFR NON-AFRICAN AMERICAN > 60; LIPASE 52 U/L (23-300)
[2017-10-18 03:46] LABS: HEMOGLOBIN 13.4 g/dL (12.0-16.0)
[2017-10-18 03:51] LABS: URINE BILIRUBIN NEGATIVE (NEGATIVE); URINE BLOOD MODERATE (NEGATIVE); URINE GLUCOSE (UA) NEGATIVE (NEGATIVE); URINE LEUKOCYTE ESTERASE NEGATIVE Leu/uL (NEGATIVE); URINE NITRATE NEGATIVE (NEGATIVE); URINE PROTEIN 100 mg/dL (<30 mg/dL); URINE UROBILINOGEN 0.2 E.U./dL (<1 E.U./dL)
[2017-10-18] MEDS ORDERED: HYDROmorphone 1 mg/ml ISec IVP STA (03:59)
[2017-10-18] MEDS ORDERED: DiphenhydrAMINE 50 mg/ml Inj IVP ONE (03:59)
[2017-10-18 04:01] LABS: URINE APPEARANCE CLEAR (CLEAR)
[2017-10-18 04:02] LABS: URINE COLOR YELLOW (YELLOW)
[2017-10-18] MEDS ORDERED: HYDROmorphone 0.5 mg/0.5 ml ISec IVP STA (04:04)
[2017-10-18 04:09] LABS: HCG,QUALITATIVE URINE NEGATIVE (NEGATIVE)
[2017-10-18 04:11] LABS: URINE BACTERIA FEW (NEG); URINE EPITHELIAL CELLS 0 - 2 /hpf (0-5); URINE WBC 0 - 2 /hpf (0-6)
[2017-10-18] MEDS ORDERED: Vitamins A & D Oint UD Foilpak TOP PRN (04:15)
[2017-10-18] MEDS ORDERED: Insulin Reg-LOW-Coverage SC SCH (04:30)
[2017-10-18] MEDS: Sodium Chloride 0.9% 1,000 ML IV SCH ×2 (04:52→18:15)
--- NOTE | 2017-10-18 05:09 | CP.PCM.HP ---
<PriceHollis - Last Filed: 10/18/17 06:30> History of Present Illness - History of Present Illness History of Present Illness: Ms. Perez is a 27 year old female with a past medical history significant for DM(type I), GERD, gastroparesis, HTN, and sickle cell trait who presents with intractable abdominal pain, nausea, and vomiting with inability to tolerate PO for the past four days. She has had similar symptoms intermittently for about 4 years. She describes the abdominal pain as diffuse and burning in nature, with occasional radiation substernally. She reports that her pain is worse when she tries to eat and when she lays flat. She reports 7 episodes of non-bloody non- bilious vomiting daily for the past four days. She also endorses one episode of non-bloody diarrhea earlier today but that she has had three solid bowel movements since that time as well as a chronic cough productive of clear sputum with intermittent production of green sputum during the winter months. She denies fever, chills, headache, changes in her vision, rhinorrhea, ear pain/ discharge, sore throat, dysphagia, chest pain, palpitations, leg swelling, orthopnea, SOB, cough, wheezing, hemoptysis, hematemesis, constipation, melena, hematochezia, burning/pain with urination, urinary frequency, hematuria, skin changes, joint pain, or any numbness/tingling/weakness of any extremity. PMH: DM type I (diagnosed age 9), GERD, gastroparesis, HTN, and sickle cell trait PSH: Denies Family History: DM in multiple family members. Breast CA in multiple family members. Sickle cell disease and trait in multiple family members. Social History: Endorses smoking 3 cigarettes daily for 17 years; denies alcohol or illicit drug use; Currently sexually active with one male partner Allergies: NKDA Home Medications: As per MAR Present on Admission - Present on Admission Any Indicators Present on Admission: No Review of Systems - Review of Systems Review of Systems: As stated in HPI, otherwise negative Past Patient History - Infectious Disease Hx of Infectious Diseases: None - Tetanus Immunizations Tetanus Immunization: Unknown - Past Medical History & Family History Past Medical History?: Yes - Past Social History Smoking Status: Light Smoker < 10 Cigarettes Daily - CARDIAC Hx Hypertension: Yes - PULMONARY Hx Respiratory Disorders: No - NEUROLOGICAL Hx Neurological Disorder: No - HEENT Hx HEENT Problems: No - RENAL Hx Chronic Kidney Disease: No - ENDOCRINE/METABOLIC Hx Diabetes Mellitus Type 1: Yes (dx 9 yrs old) - HEMATOLOGICAL/ONCOLOGICAL Hx Sickle Cell Disease: Yes ("JUST FOUND OUT A MONTH AGO") - INTEGUMENTARY Hx Dermatological Problems: No - MUSCULOSKELETAL/RHEUMATOLOGICAL Hx Osteoporosis: Yes (pt unsure of this hx) - GASTROINTESTINAL Hx Gastritis: Yes - GENITOURINARY/GYNECOLOGICAL Hx Genitourinary Disorders: No - PSYCHIATRIC Hx Anxiety: Yes Hx Depression: Yes Hx Substance Use: Yes - SURGICAL HISTORY Hx Surgeries: No - ANESTHESIA Hx Anesthesia: Yes Hx Anesthesia Reactions: No Hx Malignant Hyperthermia: No Meds Allergies/Adverse Reactions: Allergies Allergy/AdvReac Type Severity Reaction Status Date / Time No Known Allergies Allergy Verified 10/18/17 02:16 Physical Exam - Constitutional Appears: Non-toxic, No Acute Distress - Head Exam Head Exam: ATRAUMATIC, NORMAL INSPECTION, NORMOCEPHALIC - Eye Exam Eye Exam: EOMI, Normal appearance, PERRL. absent: Conjunctival injection, Nystagmus, Periorbital swelling, Periorbital tenderness, Scleral icterus Pupil Exam: NORMAL ACCOMODATION, PERRL. absent: Fixed, Irregular, Miosis, Mydriatic, Unequal - ENT Exam ENT Exam: Mucous Membranes Dry, Normal Exam, Normal External Ear Exam, Normal Oropharynx. absent: Mucous Membranes Moist - Neck Exam Neck exam: Positive for: Full Rom, Normal Inspection. Negative for: Lymphadenopathy, Meningismus, Tenderness, Thyromegaly - Respiratory Exam Respiratory Exam: Clear to Auscultation Bilateral, NORMAL BREATHING PATTERN. absent: Accessory Muscle Use, Chest Wall Tenderness, Decreased Breath Sounds, Prolonged Expiratory Phase, Rales, Rhonchi, Wheezes, Respiratory Distress, Stridor - Cardiovascular Exam Cardiovascular Exam: REGULAR RHYTHM, RRR, +S1, +S2. absent: Bradycardia, Tachycardia, Clicks, Diastolic murmur, Gallop, Irregular Rhythm, JVD, Rubs, +S4 , Systolic Murmur - GI/Abdominal Exam GI & Abdominal Exam: Normal Bowel Sounds, Soft, Tenderness (Minimal diffuse tenderness to deep palpation). absent: Bruit, Diminished Bowel Sounds, Distended, Firm, Guarding, Hernia, Hyperactive Bowel Sounds, Hypoactive Bowel Sounds, Mass, Organomegaly, Pulsatile Mass, Rebound, Rigid - Extremities Exam Extremities exam: Positive for: full ROM, normal capillary refill, normal inspection, pedal pulses present. Negative for: calf tenderness, joint swelling , pedal edema, tenderness - Back Exam Back exam: FULL ROM, NORMAL INSPECTION. absent: CVA tenderness (L), CVA tenderness (R), muscle spasm, paraspinal tenderness, rash noted, tenderness, vertebral tenderness - Neurological Exam Neurological exam: Alert, CN II-XII Intact, Normal Gait, Oriented x3 - Psychiatric Exam Psychiatric exam: Normal Affect, Normal Mood - Skin Skin Exam: Dry, Intact, Normal Color, Warm Results - Vital Signs Recent Vital Signs: Last Vital Signs Temp 98.4 F 10/18/17 03:17 Pulse 83 10/18/17 03:17 Resp 18 10/18/17 03:17 BP 157/106 H 10/18/17 03:17 Pulse Ox 98 10/18/17 03:17 - Labs Result Diagrams: 10/18/17 02:52 10/18/17 02:52 Assessment & Plan - Assessment and Plan (Free Text) Assessment: 27 year old female with a past medical history significant for DM(type I), GERD , gastroparesis, HTN, and sickle cell trait who presents with intractable abdominal pain, nausea, and vomiting with inability to tolerate PO for the past four days. Plan: 1. Gastroparesis with intractable nausea and vomiting -Reglan 10mg IVP Q8H -Zofran 4mg IVP Q4H PRN for N/V -Toradol 15mg IM Q6H PRN for pain control -NS at 100mls/hr 2. History of DM -SSI-Low and Accuchecks ACHS -Heart Healthy Moderate Carbohydrate Consistent Diet GI Prophylaxis: Protonix DVT Prophylaxis: SCD's Patient seen and case discussed with attending, Dr. Barlow. - Date & Time Date: 10/18/17 Time: 05:04 Decision To Admit - Pt Status Changed To: Hospital Disposition Of: Observation - . Bed Request Type: Med/Surg <Ron Barlow MD - Last Filed: 10/20/17 10:17> Results - Vital Signs Recent Vital Signs: Last Vital Signs Temp 98.6 F 10/19/17 07:30 Pulse 75 10/19/17 07:30 Resp 20 10/19/17 07:30 BP 135/86 10/19/17 07:30 Pulse Ox 99 10/19/17 07:30 - Labs Result Diagrams: 10/19/17 06:15 10/19/17 06:15 Labs: Laboratory Results - last 24 hr 10/19/17 11:33 POC Glucose (mg/dL) 135 H Attending/Attestation - Attestation I have personally seen and examined this patient.: Yes I have fully participated in the care of the patient.: Yes I have reviewed all pertinent clinical information: Yes Notes (Text): -I agree with the above H&P completed by the resident physician.
[2017-10-18] MEDS: Insulin Reg-LOW-Coverage SC SCH ×4 (07:30→22:38)
[2017-10-18 09:06] VITALS: RESP 20
[2017-10-18] MEDS ORDERED: Influenza Vaccine 60 mcg/0.5 mL SYR (4YR UP) IM ONE (09:06)
[2017-10-18] MEDS ORDERED: Pneumococcal 23-Valent Vaccine IM ONE (09:06)
--- NOTE | 2017-10-18 16:50 | RAD ---
HISTORY: sputum, cough , elevated wbc COMPARISON: 10/02/2017 TECHNIQUE: Chest PA and lateral FINDINGS: LUNGS: No active pulmonary disease. PLEURA: No significant pleural effusion identified. No pneumothorax apparent. CARDIOVASCULAR: Normal. OSSEOUS STRUCTURES: No significant abnormalities. VISUALIZED UPPER ABDOMEN: Normal. OTHER FINDINGS: None. IMPRESSION: No active disease.
[2017-10-19 07:18] LABS: BASO # 0.02 K/mm3 (0.0-2.0); BASO % 0.2 % (0.0-3.0); EOS % 0.2 % (1.5-5.0); GRAN # 6.03 (1.4-6.5); GRAN % 67.6 % (50.0-68.0); HEMOGLOBIN 11.8 g/dL (12.0-16.0); LYMPH # 2.1 (1.2-3.4); MEAN CELL VOLUME 78.9 fl (80.0-105.0); MEAN CORPUSCULAR HGB CONC 34.2 g/dl (31.0-37.0); MEAN PLATELET VOLUME 9.5 fl (7.0-11.0); MONO # 0.7 (0.1-0.6); RBC 4.37 10^6/uL (3.5-6.1); RED CELL DISTRIBUTION WIDTH 13.8 % (11.5-14.5); WHITE BLOOD COUNT 8.9 10^3/ul (4.5-11.0)
[2017-10-19 07:21] LABS: ALB/GLOB RATIO 1.4 (1.1-1.8); ALBUMIN 4.2 g/dL (3.0-4.8); ALT/SGPT 44 U/L (7-56); AST/SGOT 39 U/L (14-36); BLOOD UREA NITROGEN 12 mg/dL (7-21); CALCIUM 8.7 mg/dL (8.4-10.5); GFR AFRICAN-AMERICAN > 60; GFR NON-AFRICAN AMERICAN > 60
[2017-10-19] MEDS: Insulin Reg-LOW-Coverage SC SCH ×2 (08:01→12:18)
[2017-10-19 08:10] VITALS: BP 135/86; PULSE 75; TEMP 98.6; O2SAT 99
--- NOTE | 2017-10-19 10:41 | CT ---
PROCEDURE: CT Chest without contrast HISTORY: follow up cxr COMPARISON: None. TECHNIQUE: Contiguous axial images were obtained through the chest without intravenous contrast enhancement. Sagittal and coronal reconstructions were performed. Radiation dose (DLP): mGy-cm. This CT exam was performed using one or more of the following dose reduction techniques: Automated exposure control, adjustment of the mA and/or kV according to patient size, and/or use of iterative reconstruction technique. FINDINGS: LUNGS: There is mild interstitial change with scattered ground-glass density infiltrates in the medial aspect of the right upper lobe, as well as along the right lower lobe, medial segment. Scattered intra parenchymal cyst formation is identified. MEDIASTINUM: Unremarkable thoracic aorta. No aneurysm. Normal sized heart. Main pulmonary artery unremarkable. No vascular congestion. No lymphadenopathy. PLEURA: No pleural fluid. No pneumothorax. BONES: No fracture. No destructive lesion. UPPER ABDOMEN: Grossly unremarkable. OTHER FINDINGS: None. IMPRESSION: Mild ground-glass density infiltrates in the right upper lobe and right lower lobe as well as scattered cystic foci within the lung parenchyma. Findings could represent underlying inflammatory disorder. Recommend clinical correlation and follow-up.
--- NOTE | 2017-10-19 15:59 | CP.PCM.DIS ---
<Nirmal Esteves - Last Filed: 10/19/17 15:41> Provider - Provider Date of Admission: 10/18/17 04:11 Attending physician: Estephania Alonzo MD Time Spent in preparation of Discharge (in minutes): 45 Diagnosis - Discharge Diagnosis (1) Diabetes mellitus Status: Chronic Priority: Medium (2) Cyclical vomiting syndrome Status: Acute Priority: High (3) Gastroparesis Status: Chronic Priority: Medium Hospital Course - Lab Results Lab Results: Most Recent Lab Values WBC 8.9 10^3/ul (4.5-11.0) D 10/19/17 06:15 RBC 4.37 10^6/uL (3.5-6.1) 10/19/17 06:15 Hgb 11.8 g/dL (12.0-16.0) L 10/19/17 06:15 Hct 34.5 % (36.0-48.0) L 10/19/17 06:15 MCV 78.9 fl (80.0-105.0) L 10/19/17 06:15 MCH 27.0 pg (25.0-35.0) 10/19/17 06:15 MCHC 34.2 g/dl (31.0-37.0) 10/19/17 06:15 RDW 13.8 % (11.5-14.5) 10/19/17 06:15 Plt Count 265 10^3/uL (120.0-450.0) 10/19/17 06:15 MPV 9.5 fl (7.0-11.0) 10/19/17 06:15 Gran % 67.6 % (50.0-68.0) 10/19/17 06:15 Lymph % (Auto) 24.0 % (22.0-35.0) 10/19/17 06:15 [place] % (Auto) 8.0 % (1.0-6.0) H 10/19/17 06:15 Eos % (Auto) 0.2 % (1.5-5.0) L 10/19/17 06:15 Baso % (Auto) 0.2 % (0.0-3.0) 10/19/17 06:15 Gran # 6.03 (1.4-6.5) 10/19/17 06:15 Lymph # 2.1 (1.2-3.4) 10/19/17 06:15 [place] # 0.7 (0.1-0.6) H 10/19/17 06:15 Eos # 0.0 (0.0-0.7) 10/19/17 06:15 Baso # 0.02 K/mm3 (0.0-2.0) 10/19/17 06:15 Sodium 133 mmol/L (132-148) 10/19/17 06:15 Potassium 3.7 mmol/L (3.6-5.0) 10/19/17 06:15 Chloride 96 mmol/L (98-107) L 10/19/17 06:15 Carbon Dioxide 27 mmol/L (21-33) 10/19/17 06:15 Anion Gap 14 (10-20) 10/19/17 06:15 BUN 12 mg/dL (7-21) 10/19/17 06:15 Creatinine 0.7 mg/dl (0.7-1.2) 10/19/17 06:15 Est GFR ( Amer) > 60 10/19/17 06:15 Est GFR (Non-Af Amer) > 60 10/19/17 06:15 POC Glucose (mg/dL) 135 mg/dL (65-110) H 10/19/17 11:33 Random Glucose 138 mg/dL (70-110) H 10/19/17 06:15 Calcium 8.7 mg/dL (8.4-10.5) 10/19/17 06:15 Total Bilirubin 0.8 mg/dL (0.2-1.3) 10/19/17 06:15 AST 39 U/L (14-36) H 10/19/17 06:15 ALT 44 U/L (7-56) 10/19/17 06:15 Alkaline Phosphatase 42 U/L (38-126) 10/19/17 06:15 Total Protein 7.3 g/dL (5.8-8.3) 10/19/17 06:15 Albumin 4.2 g/dL (3.0-4.8) 10/19/17 06:15 Globulin 3.1 gm/dL 10/19/17 06:15 Albumin/Globulin Ratio 1.4 (1.1-1.8) 10/19/17 06:15 Lipase 52 U/L (23-300) 10/18/17 02:52 Urine Color Yellow (YELLOW) 10/18/17 03:02 Urine Appearance Clear (CLEAR) 10/18/17 03:02 Urine pH 6.0 (4.7-8.0) 10/18/17 03:02 Ur Specific [place] 1.025 (1.005-1.035) 10/18/17 03:02 Urine Protein 100 mg/dL (<30 mg/dL) H 10/18/17 03:02 Urine Glucose (UA) Negative mg/dL (NEGATIVE) 10/18/17 03:02 Urine Ketones Negative mg/dL (NEGATIVE) 10/18/17 03:02 Urine Blood Moderate (NEGATIVE) H 10/18/17 03:02 Urine Nitrate Negative (NEGATIVE) 10/18/17 03:02 Urine Bilirubin Negative (NEGATIVE) 10/18/17 03:02 Urine Urobilinogen 0.2 E.U./dL (<1 E.U./dL) 10/18/17 03:02 Ur Leukocyte Esterase Negative Tegan/uL (NEGATIVE) 10/18/17 03:02 Urine RBC 2 - 5 /hpf (0-2) 10/18/17 03:02 Urine WBC 0 - 2 /hpf (0-6) 10/18/17 03:02 Ur Epithelial Cells 0 - 2 /hpf (0-5) 10/18/17 03:02 Urine Bacteria Few (NEG) 10/18/17 03:02 Urine HCG, Qual Negative (NEGATIVE) 10/18/17 03:02 - Hospital Course Hospital Course: Patient is a 27 year old female with a past medical history significant for non insulin dependent diabetes mellitus, gastroparesis, hypertension, and sickle cell trait who presents with intractable abdominal pain, nausea, and vomiting with inability to tolerate per oral intake for the past four days. She has had similar symptoms intermittently for about 4 years. On previous admission, a diagnosis of cyclical vomiting syndrome was given. Patient was given amitriptyline and observed; patient's chronic pain, nausea, and vomiting all resolved with first dose. Patient was then discharged with a prescription however patient has returned to the emergency department with the same symptoms since her prescription has finished. Patient initially had an elevated white blood cell count along with productive cough. CT chest revealed infiltrates which may have a correlation with an inflammatory condition for which patient was given the CT report and instructed to follow up with her primary care physician for further evaluation as well as prescribed antibiotics. Patient was given a prescription for amitriptyline and instructed to follow up with her primary care physician since her prescription will only last for a short period of time. Patient also brought up her concern with her gastroparesis. Discussed with patient the effect opioid use has on gut motility as well as diabetes mellitus. Also discussed with patient regarding motility studies that can be done on an outpatient basis at [facility] in [place], [place]; patient stated she will follow up with this recommendation and discuss with her primary physician. Patient stated she felt much better with resolving of pain, nausea and vomiting and was ready to go home. Discharge plan discussed in full detail with patient, attending, and myself. Patient was cleared for discharge and then discharged. Case discussed and Reviewed with Dr. Cheri Esteves PGY1 Discharge Exam - Head Exam Head Exam: ATRAUMATIC, NORMAL INSPECTION, NORMOCEPHALIC Discharge Plan - Discharge Medications Prescriptions: Amitriptyline [Elavil] 10 mg PO Q6 10 Days #40 tab Docusate [Colace] 100 mg PO DAILY #10 cap Levofloxacin [Levaquin] 750 mg PO DAILY #5 tablet Magnesium Citrate [[facility] Magnesium Citrate] 300 ml PO DAILY # 10 bottle Polyethylene Glycol 3350 [Miralax] 17 gm PO BID 10 Days #20 ml - Follow Up Plan Condition: STABLE Disposition: HOME/ ROUTINE Instructions: Pneumococcal Vaccine for Adults (DC), Influenza Vaccine (DC), Gastroparesis (DC) Additional Instructions: 1. Please follow up with your PMD within 3-5 days regarding medication for your cyclical vomiting syndrome (Elavil) as well as CT chest findings for further evaluation with referral to specialist if needed 2. Please fill and take prescriptions as prescribed. 3. Please discuss with your PMD regarding further evaluation of gastroparesis with motility studied at [facility] - [place], [place] as we discussed. <Estephania Alonzo - Last Filed: 10/19/17 16:43> Provider - Provider Date of Admission: 10/18/17 04:11 Attending physician: Estephania Alonzo MD Hospital Course - Lab Results Lab Results: Most Recent Lab Values WBC 8.9 10^3/ul (4.5-11.0) D 10/19/17 06:15 RBC 4.37 10^6/uL (3.5-6.1) 10/19/17 06:15 Hgb 11.8 g/dL (12.0-16.0) L 10/19/17 06:15 Hct 34.5 % (36.0-48.0) L 10/19/17 06:15 MCV 78.9 fl (80.0-105.0) L 10/19/17 06:15 MCH 27.0 pg (25.0-35.0) 10/19/17 06:15 MCHC 34.2 g/dl (31.0-37.0) 10/19/17 06:15 RDW 13.8 % (11.5-14.5) 10/19/17 06:15 Plt Count 265 10^3/uL (120.0-450.0) 10/19/17 06:15 MPV 9.5 fl (7.0-11.0) 10/19/17 06:15 Gran % 67.6 % (50.0-68.0) 10/19/17 06:15 Lymph % (Auto) 24.0 % (22.0-35.0) 10/19/17 06:15 [place] % (Auto) 8.0 % (1.0-6.0) H 10/19/17 06:15 Eos % (Auto) 0.2 % (1.5-5.0) L 10/19/17 06:15 Baso % (Auto) 0.2 % (0.0-3.0) 10/19/17 06:15 Gran # 6.03 (1.4-6.5) 10/19/17 06:15 Lymph # 2.1 (1.2-3.4) 10/19/17 06:15 [place] # 0.7 (0.1-0.6) H 10/19/17 06:15 Eos # 0.0 (0.0-0.7) 10/19/17 06:15 Baso # 0.02 K/mm3 (0.0-2.0) 10/19/17 06:15 Sodium 133 mmol/L (132-148) 10/19/17 06:15 Potassium 3.7 mmol/L (3.6-5.0) 10/19/17 06:15 Chloride 96 mmol/L (98-107) L 10/19/17 06:15 Carbon Dioxide 27 mmol/L (21-33) 10/19/17 06:15 Anion Gap 14 (10-20) 10/19/17 06:15 BUN 12 mg/dL (7-21) 10/19/17 06:15 Creatinine 0.7 mg/dl (0.7-1.2) 10/19/17 06:15 Est GFR ( Amer) > 60 10/19/17 06:15 Est GFR (Non-Af Amer) > 60 10/19/17 06:15 POC Glucose (mg/dL) 135 mg/dL (65-110) H 10/19/17 11:33 Random Glucose 138 mg/dL (70-110) H 10/19/17 06:15 Calcium 8.7 mg/dL (8.4-10.5) 10/19/17 06:15 Total Bilirubin 0.8 mg/dL (0.2-1.3) 10/19/17 06:15 AST 39 U/L (14-36) H 10/19/17 06:15 ALT 44 U/L (7-56) 10/19/17 06:15 Alkaline Phosphatase 42 U/L (38-126) 10/19/17 06:15 Total Protein 7.3 g/dL (5.8-8.3) 10/19/17 06:15 Albumin 4.2 g/dL (3.0-4.8) 10/19/17 06:15 Globulin 3.1 gm/dL 10/19/17 06:15 Albumin/Globulin Ratio 1.4 (1.1-1.8) 10/19/17 06:15 Lipase 52 U/L (23-300) 10/18/17 02:52 Urine Color Yellow (YELLOW) 10/18/17 03:02 Urine Appearance Clear (CLEAR) 10/18/17 03:02 Urine pH 6.0 (4.7-8.0) 10/18/17 03:02 Ur Specific [place] 1.025 (1.005-1.035) 10/18/17 03:02 Urine Protein 100 mg/dL (<30 mg/dL) H 10/18/17 03:02 Urine Glucose (UA) Negative mg/dL (NEGATIVE) 10/18/17 03:02 Urine Ketones Negative mg/dL (NEGATIVE) 10/18/17 03:02 Urine Blood Moderate (NEGATIVE) H 10/18/17 03:02 Urine Nitrate Negative (NEGATIVE) 10/18/17 03:02 Urine Bilirubin Negative (NEGATIVE) 10/18/17 03:02 Urine Urobilinogen 0.2 E.U./dL (<1 E.U./dL) 10/18/17 03:02 Ur Leukocyte Esterase Negative [place]/uL (NEGATIVE) 10/18/17 03:02 Urine RBC 2 - 5 /hpf (0-2) 10/18/17 03:02 Urine WBC 0 - 2 /hpf (0-6) 10/18/17 03:02 Ur Epithelial Cells 0 - 2 /hpf (0-5) 10/18/17 03:02 Urine Bacteria Few (NEG) 10/18/17 03:02 Urine HCG, Qual Negative (NEGATIVE) 10/18/17 03:02 Attending/Attestation - Attestation I have personally seen and examined this patient.: Yes I have fully participated in the care of the patient.: Yes I have reviewed all pertinent clinical information, including history, physical exam and plan: Yes Notes (Text): 10/19/17 16:40 Attending note; Patient seen and examined with resident. Patient is a 27-year-old female with a past medical history of diabetes, gastroparesis is admitted with nausea and vomiting. Possible diabetic gastroparesis. Currently asymptomatic. Tolerating diet. Patient is strongly advised to control the sugar. Strongly advised to avoid opiates. Patient responded to amitriptyline well previously. Patient was advised to follow-up with [facility] clinic and motility studies. Patient also follows up with GI Dr. Rush As outpatient. Pneumonia clinically stable. Will be discharged home with by mouth Levaquin. Follow-up with PMD Dr. Bryson Solomon. 10/19/17 16:43
== END 2017-10-19 14:03 | disposition home or self-care (01) ==
LOC: ED 02:04 → ERH 04:11 → 5RNO 08:14
PROVIDERS: ADMIT Internal Medicine; ATTEND Internal Medicine
DX: E10.43 Type 1 diabetes mellitus with diabetic autonomic (poly)neuropathy (principal); K31.84 Gastroparesis; G43.A0 Cyclical vomiting, in migraine, not intractable; F17.210 Nicotine dependence, cigarettes, uncomplicated; G89.29 Other chronic pain; I10 Essential (primary) hypertension; J18.9 Pneumonia, unspecified organism; K21.9 Gastro-esophageal reflux disease without esophagitis; D57.3 Sickle-cell trait; Z79.4 Long term (current) use of insulin; Z83.3 Family history of diabetes mellitus; Z83.2 Family history of diseases of the blood and blood-forming organs and certain disorders involving the immune mechanism; Z80.3 Family history of malignant neoplasm of breast
CPT/HCPCS: 36415; 71046; 71250; 80053; 81001; 82948; 83690; 84703; 85025; 85027; 96361; 96372; 96374; 96375; 96376; 99285; C9113; G0378; J1170; J1200; J1885; J2405; J2765; J7040

== ENCOUNTER 2017-11-17 08:35 | Emergency (ER) | payer OTHER ==
[2017-11-17 08:35] VITALS: BMI 23.8
[2017-11-17 09:23] VITALS: RESP 18
[2017-11-17] MEDS ORDERED: Sodium Chloride 0.9% 1,000 ML IV STA (09:39)
--- NOTE | 2017-11-17 10:00 | ED PDOC ---
Arrival/HPI - General Chief Complaint: GI Problem Time Seen by Provider: 11/17/17 09:15 Historian: Patient - History of Present Illness Narrative History of Present Illness (Text): 11/17/17 09:56 27yo female with PMhx of anemia, diabetes, gastroparesis, well known to the ED present with complaint of abdominal pain with associated nausea and vomiting since . states she saw her PMD yesterday and was given Zofran and protonix. Notes that she is taking it without relieve. She denies diarrhea, fever, chills, chest pain, melena, hematemesis, hematuria, any other complaint. Past Medical History - Provider Review Nursing Documentation Reviewed: Yes - Infectious Disease Hx of Infectious Diseases: None - Tetanus Immunization Tetanus Immunization: Unknown - Cardiac Hx Hypertension: Yes - Pulmonary Hx Respiratory Disorders: No - Neurological Hx Neurological Disorder: No - HEENT Hx HEENT Disorder: No - Renal Hx Renal Disorder: No - Endocrine/Metabolic Hx Diabetes Mellitus Type 2: Yes - Hematological/Oncological Hx Sickle Cell Disease: Yes ("JUST FOUND OUT A MONTH AGO") - Integumentary Hx Dermatological Disorder: No - Musculoskeletal/Rheumatological Hx Osteoporosis: Yes (pt unsure of this hx) - Gastrointestinal Hx Gastrointestinal Disorders: Yes Hx Gastroesophageal Reflux: Yes Other/Comment: Gastritis - Genitourinary/Gynecological Hx Genitourinary Disorders: No - Psychiatric Hx Anxiety: Yes Hx Depression: Yes Hx Substance Use: Yes - Past Surgical History Past Surgical History: Non-Contributing - Anesthesia Hx Anesthesia: Yes Hx Anesthesia Reactions: No Hx Malignant Hyperthermia: No - Suicidal Assessment Feels Threatened In Home Enviroment: No Family/Social History - Physician Review Nursing Documentation Reviewed: Yes Family/Social History: Unknown Family HX Smoking Status: Former Smoker Hx Alcohol Use: No Hx Substance Use: Yes Substance used: weed Hx Substance Use Treatment: No Allergies/Home Meds Allergies/Adverse Reactions: Allergies No Known Allergies Allergy (Verified 10/18/17 02:16) Home Medications: Home Meds Medication Instructions Recorded Confirmed metFORMIN [glucOPHAGE] 500 mg PO BID 07/26/17 11/17/17 Review of Systems - Physician Review All systems were reviewed & negative as marked: Yes - Review of Systems Constitutional: Normal Eyes: Normal ENT: Normal Respiratory: Normal Cardiovascular: Normal Gastrointestinal: Abdominal Pain, Nausea, Vomiting. absent: Constipation, Diarrhea, Hematochezia, Hematemesis Genitourinary Female: Normal Musculoskeletal: Normal Skin: Normal Neurological: Normal Endocrine: Normal Hemo/Lymphatic: Normal Psychiatric: Normal Physical Exam Vital Signs Reviewed: Yes Vital Signs Temp Pulse Resp BP Pulse Ox 11/17/17 13:27 98.7 F 79 18 133/110 H 97 11/17/17 08:55 97.7 F 70 18 165/96 H 99 Temperature: Afebrile Blood Pressure: Normal Pulse: Regular Respiratory Rate: Normal Appearance: Positive for: Well-Appearing, Non-Toxic, Comfortable Pain Distress: None Mental Status: Positive for: Alert and Oriented X 3 Finger Stick Blood Glucose: 190 - Systems Exam Head: Present: Atraumatic, Normocephalic Pupils: Present: PERRL Extroacular Muscles: Present: EOMI Conjunctiva: Present: Normal Mouth: Present: Moist Mucous Membranes Neck: Present: Normal Range of Motion Respiratory/Chest: Present: Clear to Auscultation, Good Air Exchange. No: Respiratory Distress, Accessory Muscle Use Cardiovascular: Present: Regular Rate and Rhythm, Normal S1, S2. No: Murmurs Abdomen: Present: Normal Bowel Sounds. No: Tenderness, Distention, Peritoneal Signs Back: Present: Normal Inspection Upper Extremity: Present: Normal Inspection. No: Cyanosis, Edema Lower Extremity: Present: Normal Inspection. No: Edema Neurological: Present: GCS=15, CN II-XII Intact, Speech Normal Skin: Present: Warm, Dry, Normal Color. No: Rashes Psychiatric: Present: Alert, Oriented x 3, Normal Insight, Normal Concentration Medical Decision Making ED Course and Treatment: 11/17/17 16:38 PT presented for stated history. She was noted tolerating juice and sandwich in ED. PT however continued to complain of pain and nausea in ED. This is typical of mediation seeking behavior. she was advised that she have a chronic pain and they is no need of opiate for her treatment. She was afebrile in ED and have a GI. She saw her GI last month and scheduled to see the GI again the 17th of this month. OBS series IMPRESSION: No significant or acute findings to account for/ related to the clinical presentation. Pt had a mild leukocytosis, this could be secondary to viral enteritis. Result was DW the pt. She already have Reglan, Zofran and protonix at home. she will be DC home. Advised to follow BRAT diet. Referred to her GI. TRT ED for any new or worsening symptoms. She expressed understanding of all discussion. - Lab Interpretations Lab Results: 11/17/17 10:00 11/17/17 10:00 Lab Results 11/17/17 10:00: Sodium 147, Potassium 3.5 L, Chloride 110 H, Carbon Dioxide 21, Anion Gap 19, BUN 9, Creatinine 0.6 L, Est GFR ( Amer) > 60, Est GFR (Non -Af Amer) > 60, Random Glucose 209 H, Calcium 9.4, Total Bilirubin 0.4, AST 34, ALT 52, Alkaline Phosphatase 49, Total Protein 7.5, Albumin 4.5, Globulin 3.0, Albumin/Globulin Ratio 1.5, Lipase 47 11/17/17 10:00: PT 12.2, INR 1.06, APTT 20.9 L 11/17/17 10:00: WBC 14.9 H D, RBC 4.21, Hgb 11.6 L, Hct 34.4 L, MCV 81.7, MCH 27.6, MCHC 33.7, RDW 13.6, Plt Count 251, MPV 9.3, Gran % 90.6 H, Lymph % (Auto ) 6.1 L, [place] % (Auto) 3.1, Eos % (Auto) 0.1 L, Baso % (Auto) 0.1, Gran # 13.51 H, Lymph # (Auto) 0.9 L, [place] # (Auto) 0.5, Eos # (Auto) 0.0, Baso # (Auto) 0.02 , Neutrophils % (Manual) 92 H, Lymphocytes % (Manual) 5 L, Monocytes % (Manual) 3, Platelet Evaluation Normal, Anisocytosis (manual) 1+ 11/17/17 09:20: Urine Color Yellow, Urine Appearance Sl cloudy, Urine pH 5.5, Ur Specific [place] >= 1.030, Urine Protein 100 H, Urine Glucose (UA) 500 H, Urine Ketones Trace H, Urine Blood Small H, Urine Nitrate Negative, Urine Bilirubin Negative, Urine Urobilinogen 0.2, Ur Leukocyte Esterase Negative, Urine RBC 1 - 3, Urine WBC 0 - 2, Ur Epithelial Cells 3 - 4, Urine Bacteria Occ - RAD Interpretation Radiology Orders: 11/17/17 10:58 ABDOMEN PORTABLE 2 VIEWS [RAD] Stat - Medication Orders Current Medication Orders: Discontinued Medications Dicyclomine HCl (Bentyl) 10 mg PO ONCE STA Stop: 11/17/17 10:40 Last Admin: 11/17/17 11:01 Dose: 10 mg Famotidine (Pepcid) 20 mg IVP STAT STA Stop: 11/17/17 09:40 Last Admin: 11/17/17 10:01 Dose: 20 mg IVP Administration Document 11/17/17 10:01 [facility]IV[facility] (Rec: 11/17/17 10:02 [id number] Charges for Administration # of IVP Administrations 1 Sodium Chloride (Sodium Chloride 0.9%) 1,000 mls @ 1,000 mls/hr IV .Q1H STA Stop: 11/17/17 10:38 Last Admin: 11/17/17 10:02 Dose: 1,000 mls/hr eMAR Start Stop Document 11/17/17 10:02 VIVIAN (Rec: 11/17/17 10:02 [id number]) Intravenous Solution Start Date 11/17/17 Start Time 10:02 End Date 11/17/17 End time 11:02 Total Infusion Time 60 Ketorolac Tromethamine (Toradol) 30 mg IVP STAT STA Stop: 11/17/17 09:40 Last Admin: 11/17/17 10:01 Dose: 30 mg MAR Pain Assessment Document 11/17/17 10:01 VIVIAN (Rec: 11/17/17 10:01 [id number] Pain Reassessment Is this a pain reassessment? Yes Presence of Pain Presence of Pain Yes Pain Scale Used Pain Scale Used Numeric Location Pain Location Body Site Generalized Description Intensity of Pain at present 10 IVP Administration Document 11/17/17 10:01 VIVIAN (Rec: 11/17/17 10:01 [id number] Charges for Administration # of IVP Administrations 1 Lorazepam (Ativan) 1 mg IVP ONCE ONE PRN Reason: Protocol Stop: 11/17/17 12:29 Last Admin: 11/17/17 12:45 Dose: 1 mg IVP Administration Document 11/17/17 12:45 VIVIAN (Rec: 11/17/17 12:45 [facility] [id number][place] Charges for Administration # of IVP Administrations 1 Ondansetron HCl (Zofran Inj) 4 mg IVP STAT STA Stop: 11/17/17 09:40 Last Admin: 11/17/17 09:47 Dose: 4 mg IVP Administration Document 11/17/17 09:47 VIVIAN (Rec: 11/17/17 10:00 [facility] [id number][place] Charges for Administration # of IVP Administrations 1 Promethazine HCl (Phenergan Inj) 25 mg IM STAT STA Stop: 11/17/17 12:29 Last Admin: 11/17/17 12:45 Dose: 25 mg IM Administration Charges Document 11/17/17 12:45 VIVIAN (Rec: 11/17/17 12:45 [facility] [id number][place] Injection Site MAR Injection Site Left Deltoid Charges for Administration # of IM Administrations 1 Disposition/Present on Arrival - Present on Arrival Any Indicators Present on Arrival: No History of DVT/PE: No History of Uncontrolled Diabetes: No Urinary Catheter: No History of Decub. Ulcer: No History Surgical Site Infection Following: None - Disposition Have Diagnosis and Disposition been Completed?: Yes Diagnosis: Gastroparesis, Abdominal pain in female Disposition: HOME/ ROUTINE Disposition Time: 12:35 Patient Plan: Discharge Condition: STABLE Discharge Instructions (ExitCare): Abdominal Pain (ED) Additional Instructions: Follow up with your Doctor Return to ED for any new or worsening symptoms Referrals: Bryson Solomon MD [Primary Care Provider] - Follow up with primary Forms: [employer] (Vietnamese)
[2017-11-17 10:33] LABS: BASO # 0.02 K/mm3 (0.0-2.0); BASO % 0.1 % (0.0-3.0); EOS % 0.1 % (1.5-5.0); GRAN # 13.51 (1.4-6.5); GRAN % 90.6 % (50.0-68.0); HEMOGLOBIN 11.6 g/dL (12.0-16.0); LYMPH # 0.9 (1.2-3.4); LYMPH % 6.1 % (22.0-35.0); MEAN CELL VOLUME 81.7 fl (80.0-105.0); MEAN CORPUSCULAR HEMOGLOBIN 27.6 pg (25.0-35.0); MEAN CORPUSCULAR HGB CONC 33.7 g/dl (31.0-37.0); MEAN PLATELET VOLUME 9.3 fl (7.0-11.0); MONO # 0.5 (0.1-0.6); MONO % 3.1 % (1.0-6.0); PLATELET COUNT 251 10^3/uL (120.0-450.0); RBC 4.21 10^6/uL (3.5-6.1); RED CELL DISTRIBUTION WIDTH 13.6 % (11.5-14.5); WHITE BLOOD COUNT 14.9 10^3/ul (4.5-11.0)
[2017-11-17 10:45] LABS: INR 1.06 (0.93-1.08); PROTHROMBIN TIME 12.2 SECONDS (9.4-12.5)
[2017-11-17 10:46] LABS: PARTIAL THROMBOPLASTIN TIME 20.9 Seconds (25.1-36.5)
[2017-11-17 10:54] LABS: ALB/GLOB RATIO 1.5 (1.1-1.8); ALBUMIN 4.5 g/dL (3.0-4.8); ALT/SGPT 52 U/L (7-56); AST/SGOT 34 U/L (14-36); BLOOD UREA NITROGEN 9 mg/dL (7-21); CALCIUM 9.4 mg/dL (8.4-10.5); GFR AFRICAN-AMERICAN > 60; GFR NON-AFRICAN AMERICAN > 60; LIPASE 47 U/L (23-300)
[2017-11-17 11:28] LABS: PH,URINE 5.5 (4.7-8.0); URINE BILIRUBIN NEGATIVE (NEGATIVE); URINE BLOOD SMALL (NEGATIVE); URINE GLUCOSE (UA) 500 mg/dL (NEGATIVE); URINE LEUKOCYTE ESTERASE NEGATIVE Leu/uL (NEGATIVE); URINE NITRATE NEGATIVE (NEGATIVE); URINE PROTEIN 100 mg/dL (<30 mg/dL); URINE UROBILINOGEN 0.2 E.U./dL (<1 E.U./dL)
[2017-11-17 11:42] LABS: URINE APPEARANCE SL CLOUDY (CLEAR); URINE COLOR YELLOW (YELLOW)
[2017-11-17 11:52] LABS: LYMPHOCYTE 5 % (22.0-35.0); MONOCYTE 3 % (1.0-6.0); NEUTROPHIL 92 % (50.0-70.0)
[2017-11-17 11:57] LABS: ANISOCYTOSIS 1+; PLATELET ESTIMATE NORMAL (NORMAL)
[2017-11-17 12:01] LABS: URINE WBC 0 - 2 /hpf (0-6)
[2017-11-17 12:02] LABS: URINE BACTERIA OCC (NEG)
--- NOTE | 2017-11-17 13:26 | RAD ---
HISTORY: vomiting r/o obstruction COMPARISON: No prior. FINDINGS: BOWEL: Normal. No obstruction. No free air. BONES: Normal. OTHER FINDINGS: None. IMPRESSION: No significant or acute findings to account for/ related to the clinical presentation.
[2017-11-17 13:28] VITALS: BP 133/110; PULSE 79; TEMP 98.7; O2SAT 97
== END 2017-11-17 13:34 | disposition home or self-care (01) ==
LOC: ED 08:35
DX: E11.43 Type 2 diabetes mellitus with diabetic autonomic (poly)neuropathy (principal); K31.84 Gastroparesis; R10.9 Unspecified abdominal pain; I10 Essential (primary) hypertension; D64.9 Anemia, unspecified; Z87.891 Personal history of nicotine dependence
CPT/HCPCS: 74019; 80053; 81001; 83690; 85025; 85610; 85730; 96361; 96372; 96374; 96375; 99283; J1885; J2060; J2405; J2550; J7040

== ENCOUNTER 2017-12-05 05:24 | Emergency (ER) | payer OTHER ==
[2017-12-05 05:24] VITALS: BMI 23.8
[2017-12-05 05:39] VITALS: RESP 18
--- NOTE | 2017-12-05 06:04 | ED PDOC ---
Arrival/HPI - General Chief Complaint: Medical Clearance Time Seen by Provider: 12/05/17 05:38 Historian: Patient - History of Present Illness Narrative History of Present Illness (Text): 12/05/17 06:03 Emerald Perez is a 27 year old female, whose past medical history includes hypertension, GERD, diabetes, gastroparesis, and sickle cell trait, who presents to the Emergency department complaining of generalized abdominal pain for the past few days. Patient reports associated nausea and recurrent vomiting. Patient was seen yesterday at [facility] (Formerly [facility]) for similar complaints, treated, and discharged home. Patient denies any fever, chills, chest pain, shortness of breath, diarrhea, urinary symptoms, back pain, neck pain, headache, dizziness, or any other complaints. Symptom Onset: Gradual Symptom Course: Unchanged Activities at Onset: Light Context: Home Past Medical History - Provider Review Nursing Documentation Reviewed: Yes - Infectious Disease Hx of Infectious Diseases: None - Tetanus Immunization Tetanus Immunization: Unknown - Cardiac Hx Hypertension: Yes - Pulmonary Hx Respiratory Disorders: No - Neurological Hx Neurological Disorder: No - HEENT Hx HEENT Disorder: No - Renal Hx Renal Disorder: No - Endocrine/Metabolic Hx Diabetes Mellitus Type 2: Yes - Hematological/Oncological Hx Sickle Cell Disease: Yes ("JUST FOUND OUT A MONTH AGO") - Integumentary Hx Dermatological Disorder: No - Musculoskeletal/Rheumatological Hx Osteoporosis: Yes (pt unsure of this hx) - Gastrointestinal Hx Crohn's Disease: No Hx Diverticulitis: No Hx Gall Bladder Disease: No Hx Gastritis: Yes Hx Pancreatitis: No Other/Comment: gastroparesis - Genitourinary/Gynecological Hx Genitourinary Disorders: No - Psychiatric Hx Anxiety: Yes Hx Depression: Yes Hx Substance Use: Yes - Past Surgical History Past Surgical History: Non-Contributing - Anesthesia Hx Anesthesia: Yes Hx Anesthesia Reactions: No Hx Malignant Hyperthermia: No - Suicidal Assessment Feels Threatened In Home Enviroment: No Family/Social History - Physician Review Nursing Documentation Reviewed: Yes Family/Social History: Unknown Family HX Smoking Status: Heavy Smoker > 10 Cigarettes Daily Hx Alcohol Use: No Hx Substance Use: Yes Substance used: weed Hx Substance Use Treatment: No Allergies/Home Meds Allergies/Adverse Reactions: Allergies No Known Allergies Allergy (Verified 12/05/17 05:39) Home Medications: Home Meds Medication Instructions Recorded Confirmed metFORMIN [glucOPHAGE] 500 mg PO BID 07/26/17 11/17/17 Review of Systems - Physician Review All systems were reviewed & negative as marked: Yes - Review of Systems Constitutional: Normal. absent: Fevers Eyes: Normal ENT: Normal Respiratory: Normal. absent: SOB, Cough Cardiovascular: Normal. absent: Chest Pain Gastrointestinal: Abdominal Pain, Nausea, Vomiting. absent: Diarrhea Genitourinary Female: Normal. absent: Dysuria, Frequency, Hematuria, Urine Output Changes Musculoskeletal: Normal. absent: Back Pain, Neck Pain Skin: Normal. absent: Rash Neurological: Normal. absent: Headache, Dizziness Endocrine: Normal Hemo/Lymphatic: Normal Psychiatric: Normal Physical Exam Vital Signs Reviewed: Yes Vital Signs Temp Pulse Resp BP Pulse Ox 12/05/17 05:34 98.3 F 96 H 18 147/101 H 100 Temperature: Afebrile Blood Pressure: Normal Pulse: Regular Respiratory Rate: Normal Appearance: Positive for: Well-Appearing, Non-Toxic, Comfortable Pain Distress: None Mental Status: Positive for: Alert and Oriented X 3 - Systems Exam Head: Present: Atraumatic, Normocephalic Pupils: Present: PERRL Extroacular Muscles: Present: EOMI Conjunctiva: Present: Normal Mouth: Present: Moist Mucous Membranes Neck: Present: Normal Range of Motion Respiratory/Chest: Present: Clear to Auscultation, Good Air Exchange. No: Respiratory Distress, Accessory Muscle Use Cardiovascular: Present: Regular Rate and Rhythm, Normal S1, S2. No: Murmurs Abdomen: Present: Tenderness (mild diffuse abdominal tenderness), Normal Bowel Sounds. No: Distention, Peritoneal Signs Back: Present: Normal Inspection Upper Extremity: Present: Normal Inspection. No: Cyanosis, Edema Lower Extremity: Present: Normal Inspection. No: Edema Neurological: Present: GCS=15, CN II-XII Intact, Speech Normal Skin: Present: Warm, Dry, Normal Color. No: Rashes Psychiatric: Present: Alert, Oriented x 3, Normal Insight, Normal Concentration Medical Decision Making ED Course and Treatment: 12/05/17 06:03 Impression: 27 year old female complaining of generalized abdominal pain, nausea, and vomiting. Plan: -- Labs, lipase -- Urinalysis -- Chest X-ray -- Reassess and disposition Prior Visits: Notes and results from previous visits were reviewed. Pt was seen at [facility] ER yesterday for similar complaint. Treated with non- narcotic medication and d/c home. Progress Notes: 12/05/17 07:[address] Rice, pending labs, response to treatment, re- assessment, and final disposition. - RAD Interpretation Radiology Orders: 12/05/17 06:04 CHEST PORTABLE [RAD] Stat - Medication Orders Current Medication Orders: Sodium Chloride (Sodium Chloride 0.9%) 1,000 mls @ 999 mls/hr IV .Q1H1M STA Stop: 12/05/17 07:07 Last Admin: 12/05/17 06:44 Dose: 999 mls/hr eMAR Start Stop Document 12/05/17 06:44 RG (Rec: 12/05/17 06:44 LAURA [email or web address]) Intravenous Solution Start Date 12/05/17 Start Time 06:44 Sodium Chloride (Sodium Chloride 0.9%) 1,000 mls @ 100 mls/hr IV .Q10H ALIYA Discontinued Medications Diphenhydramine HCl (Benadryl) 50 mg IVP ONCE ONE Stop: 12/05/17 06:08 Last Admin: 12/05/17 06:43 Dose: 50 mg IVP Administration Document 12/05/17 06:43 RG (Rec: 12/05/17 06:43 RG [id number]) Charges for Administration # of IVP Administrations 1 Famotidine (Pepcid) 20 mg IVP STAT STA Stop: 12/05/17 06:08 Last Admin: 12/05/17 06:43 Dose: 20 mg IVP Administration Document 12/05/17 06:43 RG (Rec: 12/05/17 06:43 LAURA [id number]) Charges for Administration # of IVP Administrations 1 Ketorolac Tromethamine (Toradol) 30 mg IVP ONCE ONE Stop: 12/05/17 06:08 Last Admin: 12/05/17 06:43 Dose: 30 mg MAR Pain Assessment Document 12/05/17 06:43 RG (Rec: 12/05/17 06:44 LAURA [email or web address]-PC) Pain Reassessment Is this a pain reassessment? Yes Sleep Is patient sleeping during reassessment? No Location Pain Location Body Site Abdomen Description Description Constant Pain Behavior Irritability Aggravating Factors Contant IVP Administration Document 12/05/17 06:43 RG (Rec: 12/05/17 06:44 LAURA [id number]) Charges for Administration # of IVP Administrations 1 Metoclopramide HCl (Reglan) 10 mg IVP ONCE ONE Stop: 12/05/17 06:08 Last Admin: 12/05/17 06:43 Dose: 10 mg IVP Administration Document 12/05/17 06:43 LAURA (Rec: 12/05/17 06:43 LAURA [id number]) Charges for Administration # of IVP Administrations 1 - Scribe Statement The provider has reviewed the documentation as recorded by the Scribledy Velázquez All medical record entries made by the Lauraibledy were at my direction and personally dictated by me. I have reviewed the chart and agree that the record accurately reflects my personal performance of the history, physical exam, medical decision making, and the department course for this patient. I have also personally directed, reviewed, and agree with the discharge instructions and disposition. Disposition/Present on Arrival - Present on Arrival Any Indicators Present on Arrival: No History of DVT/PE: No History of Uncontrolled Diabetes: No Urinary Catheter: No History of Decub. Ulcer: No History Surgical Site Infection Following: None - Disposition Have Diagnosis and Disposition been Completed?: No Diagnosis: Gastroparesis, Abdominal pain Disposition Time: 07:00 Condition: STABLE Referrals: Bryson Solomon MD [Primary Care Provider] - Follow up with primary Forms: [facility] (Gabonese)
[2017-12-05] MEDS ORDERED: Sodium Chloride 0.9% 1,000 ML IV STA (06:07)
[2017-12-05] MEDS ORDERED: DiphenhydrAMINE 50 mg/ml Inj IVP ONE (06:07)
[2017-12-05] MEDS ORDERED: Sodium Chloride 0.9% 1,000 ML IV SCH (06:15)
[2017-12-05 07:18] LABS: HEMOGLOBIN 13.4 g/dL (12.0-16.0); MEAN CELL VOLUME 81.4 fl (80.0-105.0); MEAN CORPUSCULAR HEMOGLOBIN 27.7 pg (25.0-35.0); MEAN CORPUSCULAR HGB CONC 34.1 g/dl (31.0-37.0); MEAN PLATELET VOLUME 9.7 fl (7.0-11.0); RBC 4.83 10^6/uL (3.5-6.1); RED CELL DISTRIBUTION WIDTH 13.7 % (11.5-14.5); WHITE BLOOD COUNT 9.6 10^3/ul (4.5-11.0)
[2017-12-05 07:32] LABS: ALB/GLOB RATIO 1.3 (1.1-1.8); ALT/SGPT 52 U/L (7-56); AST/SGOT 43 U/L (14-36); BLOOD UREA NITROGEN 18 mg/dL (7-21); CALCIUM 9.8 mg/dL (8.4-10.5); GFR AFRICAN-AMERICAN > 60; GFR NON-AFRICAN AMERICAN > 60; LIPASE 89 U/L (23-300)
--- NOTE | 2017-12-05 07:32 | ED PDOC ---
Physical Exam Vital Signs Reviewed: Yes Vital Signs Temp Pulse Resp BP Pulse Ox 12/05/17 07:40 98 F 66 18 124/78 98 12/05/17 05:34 98.3 F 96 H 18 147/101 H 100 Temperature: Afebrile Blood Pressure: Normal Pulse: Regular Respiratory Rate: Normal Appearance: Positive for: Well-Appearing Pain Distress: None Mental Status: Positive for: Alert and Oriented X 3 Medical Decision Making ED Course and Treatment: 12/05/17 07:16 Patient endorsed to me by Dr. Guzman, as patient is currently awaiting lab results. Chest X-ray shows no acute distress. 12/05/17 08:31 Patient was given Maaloz, Viscous Lidocaine and Donnatol for further relief of symptoms. She felt better. Abdomen is soft, NT, ND, BSx4. She is tolerating PO fluids. I discussed in detail with patient the treatment for her abdominal pain. She has been dealing with reflux for a long time and she says she has a GI doctor. I advised to her to make sure to follow the diet recommended by her specialist. I advised the importance of keeping well hydration. She was informed that she should return to the ED if symptoms worsen or any other concern. - Lab Interpretations Lab Results: 12/05/17 07:00 12/05/17 07:00 Lab Results 12/05/17 07:13: Urine Color Yellow, Urine Appearance Slight-cloudy, Urine pH 6.0 , Ur Specific [place] 1.025, Urine Protein 100 H, Urine Glucose (UA) Negative, Urine Ketones 40 H, Urine Blood Moderate H, Urine Nitrate Negative, Urine Bilirubin Negative, Urine Urobilinogen 1.0 H, Ur Leukocyte Esterase Negative, Urine RBC 0 - 2, Urine WBC Negative, Ur Epithelial Cells 0 - 2, Urine Bacteria None, Urine HCG, Qual Negative 12/05/17 07:00: WBC 9.6 D, RBC 4.83, Hgb 13.4, Hct 39.3, MCV 81.4, MCH 27.7, MCHC 34.1, RDW 13.7, Plt Count 298, MPV 9.7 12/05/17 07:00: Sodium 140, Potassium 4.1, Chloride 99, Carbon Dioxide 27, Anion Gap 19, BUN 18, Creatinine 0.7, Est GFR ( Amer) > 60, Est GFR (Non- Af Amer) > 60, Random Glucose 153 H, Calcium 9.8, Total Bilirubin 1.3, AST 43 H D, ALT 52, Alkaline Phosphatase 56, Total Protein 8.8 H, Albumin 5.0 H, Globulin 3.8, Albumin/Globulin Ratio 1.3, Lipase 89 I have reviewed the lab results: Yes - RAD Interpretation Radiology Orders: 12/05/17 06:04 CHEST PORTABLE [RAD] Stat - Medication Orders Current Medication Orders: Sodium Chloride (Sodium Chloride 0.9%) 1,000 mls @ 100 mls/hr IV .Q10H ALIYA Last Admin: 12/05/17 07:48 Dose: 100 mls/hr eMAR Start Stop Document 12/05/17 07:48 TAMEKA (Rec: 12/05/17 07:47 TAMEKA [id number]) Intravenous Solution Start Date 12/05/17 Start Time 07:10 Discontinued Medications Al Hydrox/Mg Hydrox/Simethicone (Maalox Plus 30 Ml) 30 ml PO STAT STA Stop: 12/05/17 07:35 Last Admin: 12/05/17 07:45 Dose: 30 ml Belladonna/Phenobarbital ( Elixir) 5 ml PO STAT STA Stop: 12/05/17 07:35 Last Admin: 12/05/17 07:46 Dose: 5 ml Diphenhydramine HCl (Benadryl) 50 mg IVP ONCE ONE Stop: 12/05/17 06:08 Last Admin: 12/05/17 06:43 Dose: 50 mg IVP Administration Document 12/05/17 06:43 LAURA (Rec: 12/05/17 06:43 LAURA [id number]) Charges for Administration # of IVP Administrations 1 Famotidine (Pepcid) 20 mg IVP STAT STA Stop: 12/05/17 06:08 Last Admin: 12/05/17 06:43 Dose: 20 mg IVP Administration Document 12/05/17 06:43 RG (Rec: 12/05/17 06:43 LAURA [id number]) Charges for Administration # of IVP Administrations 1 Sodium Chloride (Sodium Chloride 0.9%) 1,000 mls @ 999 mls/hr IV .Q1H1M STA Stop: 12/05/17 07:07 Last Admin: 12/05/17 06:44 Dose: 999 mls/hr eMAR Start Stop Document 12/05/17 06:44 RG (Rec: 12/05/17 06:44 [id number]) Intravenous Solution Start Date 12/05/17 Start Time 06:44 Ketorolac Tromethamine (Toradol) 30 mg IVP ONCE ONE Stop: 12/05/17 06:08 Last Admin: 12/05/17 06:43 Dose: 30 mg MAR Pain Assessment Document 12/05/17 06:43 RG (Rec: 12/05/17 06:44 LAURA [id number]) Pain Reassessment Is this a pain reassessment? Yes Sleep Is patient sleeping during reassessment? No Location Pain Location Body Site Abdomen Description Description Constant Pain Behavior Irritability Aggravating Factors Contant IVP Administration Document 12/05/17 06:43 RG (Rec: 12/05/17 06:44 [id number]) Charges for Administration # of IVP Administrations 1 Lidocaine HCl (Lidocaine 2% Viscous) 15 ml MM STAT STA Stop: 12/05/17 07:37 Last Admin: 12/05/17 07:45 Dose: 15 ml Metoclopramide HCl (Reglan) 10 mg IVP ONCE ONE Stop: 12/05/17 06:08 Last Admin: 12/05/17 06:43 Dose: 10 mg IVP Administration Document 12/05/17 06:43 RG (Rec: 12/05/17 06:43 [id number]) Charges for Administration # of IVP Administrations 1 - Scribe Statement The provider has reviewed the documentation as recorded by the [address] Provider Scribe Attestation: All medical record entries made by the Lauraibledy were at my direction and personally dictated by me. I have reviewed the chart and agree that the record accurately reflects my personal performance of the history, physical exam, medical decision making, and the department course for this patient. I have also personally directed, reviewed, and agree with the discharge instructions and disposition. Disposition/Present on Arrival - Present on Arrival Any Indicators Present on Arrival: No History of DVT/PE: No History of Uncontrolled Diabetes: No Urinary Catheter: No History of Decub. Ulcer: No History Surgical Site Infection Following: None - Disposition Have Diagnosis and Disposition been Completed?: Yes Diagnosis: Gastroparesis, Abdominal pain Disposition: HOME/ ROUTINE Disposition Time: 08:15 Patient Plan: Discharge Patient Problems: Current Active Problems Problem Status Onset Gastroparesis Chronic Abdominal pain Acute Condition: IMPROVED Discharge Instructions (ExitCare): Gastroparesis (Delayed Gastric Emptying), Nausea and Vomiting, Adult Additional Instructions: Ms Broderick, thank you for letting us take care of you today. Your provider was Dr. Rice. You were treated for Abdominal Pain. The emergency medical care you received today was directed at your acute symptoms. If you were prescribed any medication, please fill it and take as directed. It may take several days for your symptoms to resolve. Return to the Emergency Department if your symptoms worsen, do not improve, or if you have any other problems. Please contact your doctor or call one of the physicians/clinics you have been referred to that are listed on the Patient Visit Information form that is included in your discharge packet. Bring any paperwork you were given at discharge with you along with any medications you are taking to your follow up visit. Our treatment cannot replace ongoing medical care by a primary care provider (PCP) outside of the emergency department. Thank you for allowing the [facility] team to be part of your care today. If you had an X-Ray or CT scan: A Radiologist will review the ED reading if any change in treatment is needed we will contact you. If you had a blood, urine, or wound culture: It will take several days for the results, if any change in treatment is needed we will contact you. If you had an STI test: It will take 48 hours for the results. Please call after 1 week if you have not heard back. Prescriptions: Ondansetron ODT [Zofran ODT] 4 mg PO Q6 #14 odt Pantoprazole Sodium [Protonix] 40 mg PO DAILY #30 ect Referrals: Bryson Solomon MD [Primary Care Provider] - Follow up with primary Forms: [employer] (Lithuanian)
[2017-12-05] MEDS ORDERED: Atrop/Hyosc/Scopal/PB Elixir (120 ml) PO STA (07:34)
[2017-12-05] MEDS ORDERED: Alum-Mag Hydrox-Simethicone Susp (30 mL) PO STA (07:34)
[2017-12-05 07:35] LABS: URINE BILIRUBIN NEGATIVE (NEGATIVE); URINE BLOOD MODERATE (NEGATIVE); URINE GLUCOSE (UA) NEGATIVE (NEGATIVE); URINE LEUKOCYTE ESTERASE NEGATIVE Leu/uL (NEGATIVE); URINE NITRATE NEGATIVE (NEGATIVE); URINE PROTEIN 100 mg/dL (<30 mg/dL)
[2017-12-05 07:40] LABS: URINE APPEARANCE SLIGHT-CLOUDY (CLEAR); URINE COLOR YELLOW (YELLOW)
[2017-12-05 07:41] LABS: HCG,QUALITATIVE URINE NEGATIVE (NEGATIVE)
[2017-12-05 07:45] LABS: URINE EPITHELIAL CELLS 0 - 2 /hpf (0-5); URINE RBC 0 - 2 /hpf (0-2); URINE WBC NEGATIVE /hpf (0-6)
[2017-12-05 08:19] VITALS: BP 124/78; PULSE 66; TEMP 98; O2SAT 98
--- NOTE | 2017-12-05 09:28 | RAD ---
HISTORY: abdominal pain COMPARISON: 10/18/2017 FINDINGS: LUNGS: No active pulmonary disease. PLEURA: No significant pleural effusion identified, no pneumothorax apparent. CARDIOVASCULAR: Normal. OSSEOUS STRUCTURES: No significant abnormalities. VISUALIZED UPPER ABDOMEN: Normal. OTHER FINDINGS: None. IMPRESSION: No active disease.
== END 2017-12-05 08:52 | disposition home or self-care (01) ==
LOC: ED 05:24
DX: E11.43 Type 2 diabetes mellitus with diabetic autonomic (poly)neuropathy (principal); K31.84 Gastroparesis; R10.9 Unspecified abdominal pain; I10 Essential (primary) hypertension; D57.1 Sickle-cell disease without crisis; F17.210 Nicotine dependence, cigarettes, uncomplicated
CPT/HCPCS: 71045; 80053; 81001; 83690; 84703; 85027; 96361; 96374; 96375; 99284; J1200; J1885; J2765; J7040